=== PATIENT | female | born 1955 | race Caucasian/White ===

== ENCOUNTER 2018-02-11 12:44 | Inpatient (IN) | payer OTHER ==
[~2018-02-11] VITALS: Ht 167.6 cm; Wt 74.8 kg
--- NOTE | ~2018-02-11 | CON ---
[place], [place] REPORT OF CONSULTATION NAME: COMPA ARMANDO UNIT #: [id number] ROOM: 314 DOCTOR: ALVIN CLEMONS ED.D (ITA) BIRTHDATE: [birth year] DOS: 02/13/2018 HISTORY OF PRESENT ILLNESS: The patient is a 62-year-old female referred by Dr. Hernandez for competency evaluation. At the present time, she is on the [facility] Unit at [facility]. She states that she is and has no children. Her parents are both living, and they are presently making her decisions. She formerly worked with [employer] in [place], [place]. PAST MEDICAL HISTORY: Her medical history is pertinent for schizoaffective disorder and knee surgery. ALLERGIES: SHE IS ALLERGIC TO HALDOL AND PENICILLIN. MEDICATIONS: Include Exelon, Invega, Vasotec, K-Dur, Depakote Sprinkle, Dulcolax, Ativan, and Klonopin. This patient was awake, alert and oriented to person and place, but not to time. She is clearly not competent to make informed healthcare decisions at this time. I spoke with the staff at [facility], and they indicated that they always contacted the patient's parents, who were in their 80s, for any type of medical decisions. She does not have a healthcare power of trust and estates attorney. In my opinion, this patient would benefit from a healthcare power of trust and estates attorney or guardianship DIAGNOSIS: Schizoaffective disorder. RECOMMENDATIONS: In my opinion, this patient is not competent to make informed healthcare decisions. Thank you very much for this consult. ALVIN CLEMONS ED.D CM:CONSTR:REPORT OF CONSULTATION 1715 02/14/18 0332 junior HERNANDEZ MD
--- NOTE | ~2018-02-11 | PR ---
[place], [place] PROGRESS NOTE NAME: COMPA ARMANDO UNIT #: [id number] ROOM: 314 DOCTOR: ELOINA MACIAS MD BIRTHDATE: [birth year] DOS: 02/20/2018 CHIEF COMPLAINT: "I am still not sleeping." SUMMARY OF THE VISIT: The patient was interviewed in the dining area. She reported to me that she still is having significant issues with sleep. She not only has trouble falling asleep, but she does not sleep through the night. She seemed rather perplexed and bewildered when I told her that she would be returning back to [facility] and that her guardian wanted it this way. She was unclear how she ever got a guardian and why she has one. I tried to reorient her that her decision making process at times is suspect and she does need somebody to help her make more informed decisions. She nodded in approval at that time. She convincingly denies any medication side effects at this time. MENTAL STATUS: She is alert and oriented with time gaps. Mood does seem to be trending more towards euthymia. Affect is more appropriate. There is no amy, hypomania. There is no gross psychosis. There is no tardive dyskinesia, extrapyramidal symptoms, or other side effects noted. PLAN: I will change her Rozerem from p.r.n. to straight to see if this helps. She is to be given her secondary loading dose of the Invega Sustenna today. We will monitor then over the next 24-48 hours for both benefits and side effects, discharging then when psychiatrically stable. ELOINA MACIAS MD CM:PNTRANS [id number] ELOINA MACIAS MD 03/02/18 0831 interface
--- NOTE | ~2018-02-11 | PN ---
[place], [place] PROGRESS NOTE NAME: COMPA ARMANDO UNIT #: [id number] ROOM: 314 DOCTOR: ELOINA MACIAS MD BIRTHDATE: [birth year] DATE: 02/15/18 ADDENDUM 04/04/[address] MACIAS: Above note reviewed. Agree with observations, recommendations, and overall treatment plan. ELOINA MACIAS MD CM:PNTRANS 3 5 ELOINA MACIAS MD 04/04/18805 HALLIE DUBON MIS.LLR
--- NOTE | ~2018-02-11 | PR ---
[place], [place] PROGRESS NOTE NAME: COMPA ARMANDO UNIT #: [id number] ROOM: 314 DOCTOR: VENECIA HUTCHINS MD BIRTHDATE: [birth year] DOS: 02/17/2018 SUBJECTIVE: The patient seen and I spoke with the staff. Per staff, the patient is argumentative at times, selectively compliant with her medications, hard to redirect at times. The patient was on her bed in her room. She said that she is not doing good. When I asked her why she said that she did not sleep well last night. I encouraged the patient to get up from bed and stay in the day area so that she can sleep well at night. The patient mentioned that she will do it. MENTAL STATUS EXAMINATION: Pleasant, cooperative. Described her mood as "not good". Affect was flat. Thought process goal directed. No flight of ideas or loosening of association. She denied auditory or visual hallucination. No delusion or paranoia noted. She denies suicidal ideation, intent or plan. She also denied homicidal ideation, intent or plan. Insight and judgment was impaired. PLAN: 1. Continue current medications and care. 2. Encourage activities in groups. 3. Continue redirection and supportive care. VENECIA HUTCHINS MD CM:PNTRANS [id number] VENECIA HUTCHINS MD 03/06/18 1017 interface
--- NOTE | ~2018-02-11 | WRIGHTHP ---
[place], [place] PATIENT HISTORY AND PHYSICAL EXAM NAME: COMPA ARMANDO UNIT #: [id number] ROOM: 314 DOCTOR: ELOINA MACIAS MD BIRTHDATE: [birth year] DOS: 02/13/2018 CHIEF COMPLAINT: "I hated [facility]." HISTORY OF PRESENT ILLNESS: This is a 62-year-old white female known to me from her stay at [facility], a halfway in [place], [place]. The patient has a lengthy history of schizoaffective disorder and has been spiraling out of control over the last week to 2 weeks prior to this admission. During this period of time, she has been episodically noncompliant with her medications as well as all aspects of care. She has been verbally and physically aggressive towards staff, making threats of harm to them. She has also stated at times she is suicidal or homicidal. She has been very labile and unpredictable. She has put herself and others at risk for harm. She is now admitted to rule out any organic factors, to stabilize on medication and then to return to the least restrictive environment. PAST MEDICAL HISTORY: Remarkable for schizoaffective disorder and a history of knee surgery. ALLERGIES: She has allergies listed to HALDOL and PENICILLIN. SOCIAL HISTORY: She never smoked cigarettes. She is a social drinker, and does not use illicit drugs. STRENGTHS: Ambulatory, good verbal skills. WEAKNESSES: Chronic severe mental health issues. MENTAL STATUS: She is alert and oriented to person, place, approximate to time. Mood does seem to be rather labile and inappropriate at times. Affect is bizarre. She is short and terse at times, jumping from topic to topic. She does have significant delusions and there is also significant paranoia. Short term memory is poor. DIAGNOSIS: Schizoaffective disorder. PLAN: Her Risperdal has already been discontinued as has her Zoloft. I will discontinue her Klonopin as well, trying to simplify her regimen. I will start her on Invega 6 mg in the morning with the plan ultimately to load with Invega Sustenna. Also, start her on Exelon patch because I do see some cognitive slippage, engage in individual and patton milieu activity, returning then to the least restrictive environment when psychiatrically stable. [place], [place] PATIENT HISTORY AND PHYSICAL EXAM NAME: COMPA ARMANDO UNIT #: [id number] ROOM: [facility] DOCTOR: ELOINA MACIAS MD BIRTHDATE: [birth year] ELOINA MACIAS MD CM:HISPHYS:PATIENT HISTORY AND PHYSICAL EXAMINATION [id number] ELOINA MACIAS MD 02/13/18 1216 interface
--- NOTE | ~2018-02-11 | PN ---
[place], [place] PROGRESS NOTE NAME: COMPA ARMANDO UNIT #: [id number] ROOM: 314 DOCTOR: ELOINA MACIAS MD BIRTHDATE: [birth year] DATE: 02/21/18 ADDENDUM 04/04/[address] MACIAS: Above note reviewed. Agree with observations, recommendations, and overall treatment plan. ELOINA MACIAS MD CM:PNTRANS 3 6 ELOINA MACIAS MD 04/04/18806 HALLIE DUBON MIS.LLR
--- NOTE | ~2018-02-11 | DS ---
[place], [place] DISCHARGE SUMMARY NAME: COMPA ARMANDO UNIT #: [id number] ROOM: 314 DOCTOR: ELOINA MACIAS MD BIRTHDATE: [birth year] DOS: 02/22/2018 CHIEF COMPLAINT: "I hated [facility]." HISTORY OF PRESENT ILLNESS: This is a 62-year-old white female known to me from her stay at [facility]. The patient has a lengthy history of schizoaffective disorder and has been spiraling out of control for the last 2 weeks prior to this admission. During this period of time, she has been episodically noncompliant with her medications as well as all aspects of her care. She has been both verbally and physically aggressive towards staff, making threats to harm them. At times, she stated that she is actively suicidal and homicidal. She is very labile and unpredictable and was admitted to rule out organic factors and to stabilize on medication. SUMMARY OF HOSPITAL COURSE: The patient was admitted to the unit where her previous psychotropic medication regimen was discontinued. Risperdal and Zoloft were stopped as well as Klonopin in an attempt to simplify her drug regimen. She was started on Invega 6 mg in the morning and because of significant cognitive impairment, was also started on Exelon patch. After tolerating several doses of the Invega well, she was loaded with Invega Sustenna 234 mg without any apparent side effects. After about 4 days of the initial loading dose, she received her secondary loading dose of Invega Sustenna 156 mg. After tolerating both of these well and monitoring her over the next 24-48 hours, she did improve dramatically. There was no tardive dyskinesia, extrapyramidal symptoms, akathisia, rigidity or any other side effects noted. Her psychotic symptoms and mood stabilized to the point where she could safely return to [facility] where I will continue to follow her. MENTAL STATUS AT DISCHARGE: She is alert and oriented with significant time gaps. Mood does seem to be strongly trending towards euthymia. Affect is more appropriate. There is no amy, hypomania or gross psychotic symptoms. No agitation or aggression. No TD, EPS or other side effects. DIAGNOSIS AT DISCHARGE: Schizoaffective disorder. PLAN: The patient is medically stable and no acute issues are currently present. Psychiatrically, she is improved to the point where I will be able to admit her back to [facility], a long-term care [facility] where I will be the psychiatrist of record. [place], [place] DISCHARGE SUMMARY NAME: COMPA ARMANDO UNIT #: [id number] ROOM: [facility] DOCTOR: ELOINA MACIAS MD BIRTHDATE: [birth year] ELOINA MACIAS MD CM:DISCHARG [id number] ELOINA MACIAS MD 03/30/18 1010 interface
--- NOTE | ~2018-02-11 | PN ---
[place], [place] PROGRESS NOTE NAME: COMPA ARMANDO UNIT #: [id number] ROOM: 314 DOCTOR: ELOINA MACIAS MD BIRTHDATE: [birth year] DATE: 02/14/18 ADDENDUM 04/04/18803 DR. MACIAS: Above note reviewed. Agree with observations, recommendations, and overall treatment plan. ELOINA MACIAS MD CM:PNTRANS 3 4 ELOINA MACIAS MD 04/04/18804 HALLIE DUBON MIS.LLR
--- NOTE | ~2018-02-11 | PN ---
[place], [place] PROGRESS NOTE NAME: COMPA ARMANDO UNIT #: [id number] ROOM: 314 DOCTOR: ELOINA MACIAS MD BIRTHDATE: [birth year] DATE: 02/16/18 ADDENDUM 04/04/18803 DR. MACIAS: Above note reviewed. Agree with observations, recommendations, and overall treatment plan. ELOINA MACIAS MD CM:PNTRANS 3 5 ELOINA MACIAS MD 04/04/18805 HALLIE DUBON MIS.LLR
--- NOTE | ~2018-02-11 | PR ---
[place], [place] PROGRESS NOTE NAME: COMPA ARMANDO UNIT #: [id number] ROOM: 314 DOCTOR: VENECIA HUTCHINS MD BIRTHDATE: [birth year] DOS: 02/19/2018 SUBJECTIVE: The patient seen and spoke with staff. Per staff, she took her medication. No behavioral problems or issues. The patient was pleasant and cooperative. She was in her room. She said that she is feeling better mood boswell, but reports poor sleep at night. She denied depressed mood or hopelessness. Denied any other neurovegetative signs and symptoms of depression. MENTAL STATUS EXAMINATION: Pleasant and cooperative, described. She described her mood as "better." Affect was mood congruent. Thought process goal directed. No flight of ideas, loosening of association. She denied auditory or visual hallucination. No delusion or paranoia noted. She denied suicidal ideation, intent, or plan. She also denied homicidal ideation, intent, or plan. PLAN: 1. Continue current medication and care. 2. Continue redirection and supportive care. 3. Encourage activities in groups. 4. Final medication management and discharge plan by the regular team. VENECIA HUTCHINS MD CM:PNTRANS [id number] VENECIA HUTCHINS MD 02/20/18 0534 interface
--- NOTE | ~2018-02-11 | PR ---
[place], [place] PROGRESS NOTE NAME: COMPA ARMANDO UNIT #: [id number] ROOM: 314 DOCTOR: ELOINA MACIAS MD BIRTHDATE: [birth year] DOS: 02/17/2018 CHIEF COMPLAINT: "I guess I feel better, I didn't sleep, though." SUMMARY OF THE VISIT: The patient was interviewed as she sat down to eat her breakfast. She looked perplexed and bewildered as she sat down and her responses to me tended to be vague and at times inappropriate to the question asked. When asked if she is feeling better, her response was "I do not know." She did per nursing report willingly take her loading dose of Invega Sustenna of 234 mg IM yesterday. I see no ill effects from the injection. There is no sedation, somnolence, tardive dyskinesia or extrapyramidal symptoms. She has been much more pleasant and compliant and other than the tendency she has to isolate in her room, she is becoming less and less problematic. MENTAL STATUS: She is alert and oriented with significant time gaps. Mood does seem to be starting to trend toward euthymia. Affect is more appropriate. There is no amy or hypomania present. Unclear if there is much psychotic symptoms because she is so vague and evasive in her thinking. Short term memory continues to be problematic. PLAN: I will go ahead and max out the Namenda to 10 mg twice daily augmenting the effectiveness of the Exelon patch at 13.3 mg a day. I will order Invega Sustenna at the secondary loading dose of 156 mg IM for 02/20/2018 and every month thereafter. I will order her Rozerem 8 mg at bedtime p.r.n. sleep and also obtain a Podiatry consult as nursing reports that the patient is picking a lot of dry skin from her feet and she did request that we help her in this area. We will engage her in individual and patton milieu, returning then to the least restrictive environment when psychiatrically stable. ELOINA MACIAS MD CM:PNTRANS [phone] ELOINA MACIAS MD 02/17/18 1435 interface
[2018-02-11] MEDS ORDERED: HYDROCHLOROTHIA25 M1 PO (19:44)
[2018-02-11] MEDS ORDERED: POTASSIUM CHLO20 ME4 PO (19:46)
[2018-02-11] MEDS ORDERED: RISPERIDONE0.25 M2 PO (19:47)
[2018-02-11] MEDS ORDERED: ENALAPRIL MALEAT5 MG PO (19:47)
[2018-02-11] MEDS ORDERED: SERTRALINE HYD100 MG PO (19:49)
[2018-02-12] MEDS ORDERED: PAIN RELIEVER325 MG PO (05:39)
[2018-02-12] MEDS ORDERED: DULCOLAX10 M1 R (05:40)
[2018-02-12] MEDS ORDERED: FLEET ENEMA 13133 ML R (05:41)
[2018-02-12] MEDS ORDERED: KLONOPIN0.5 MG PO (05:41)
[2018-02-12] MEDS ORDERED: MILK OF MA400 MG/5 M PO (05:42)
[2018-02-12] MEDS ORDERED: VITAMIN C500 M7 PO (05:43)
[2018-02-12 12:24] VITALS: BP 134/81
[2018-02-12 13:29] VITALS: BP 134/81
[2018-02-12 18:19] LABS: BILIRUBIN NEGATIVE (NEGATIVE); BLOOD TRACE-LYSED (NEGATIVE); CLARITY CLEAR (CLEAR); COLOR YELLOW (YELLOW); GLUCOSE NEGATIVE (NEGATIVE); KETONE NEGATIVE (NEGATIVE); LEUKO ESTERASE 2+ (NEGATIVE); NITRITE POSITIVE (NEGATIVE); SPECIFIC GRAVITY <= 1.005 (1.005-1.030)
[2018-02-12 18:27] LABS: BACTERIA 3+; RBC 0-2 rbc/hpf (0-2); WBC 21-30 wbc/hpf (0-5)
[2018-02-12 20:00] VITALS: BP 158/72
[2018-02-13 07:06] LABS: BASO % 0.6 % (0.0-1.0); EOS # 0.1 10*3/uL (0.0-0.4); EOS % 1.1 % (1.0-4.0); HEMATOCRIT 41.2 % (37.0-47.0); HEMOGLOBIN 13.4 g/dl (12.0-16.0); LYMPH # 0.9 10*3/uL (1.3-4.4); LYMPH % 19.7 % (27.0-41.0); MEAN CELL VOLUME 86.2 fl (81.0-99.0); MEAN CORPUSCULAR HGB CONC 32.5 g/dl (33.0-37.0); MEAN PLATELET VOLUME 10.6 fl (9.6-12.3); MONO # 0.5 10*3/uL (0.1-1.0); NEUT # 3.2 10*3/uL (2.3-7.9); NEUT % 68.4 % (47.0-73.0); PLATELET COUNT AUTOMATED 129 10*3/uL (130-400); RED BLOOD COUNT 4.78 10*6/uL (4.10-5.10); RED CELL DISTRI WIDTH 14.2 % (0-14.5); WHITE BLOOD COUNT 4.7 10*3/uL (4.8-10.8)
[2018-02-13 07:27] LABS: ALBUMIN 3.5 gm/dl (3.1-4.5); ALKALINE PHOSPHATASE 78 U/L (45-117); BUN 4 mg/dl (7-24); CHLORIDE 103 mmol/L (98-107); CHOLESTEROL 152 mg/dL (<200); CREATININE 0.64 mg/dL (0.55-1.02); HDL CHOLESTEROL 58 mg/dl (40-60); LDL CHOLESTEROL 79 mg/dL (9-159); POTASSIUM 4.3 mmol/L (3.5-5.1); SGOT/AST 13 IU/L (3-35); SGPT/ALT 20 U/L (12-78); SODIUM 138 mmol/L (136-145); TOTAL PROTEIN 6.4 gm/dL (6.4-8.2); TRIGLYCERIDES 73 mg/dl (<150); VLDL CHOLESTEROL 15 mg/dL (6-40)
[2018-02-13 07:32] LABS: THYROID STIM HORMONE (HS) 0.921 uIU/ml (0.358-4.75)
[2018-02-13 07:57] LABS: VITAMIN D, 25-HYDROXY 32.1 ng/mL (30-100)
[2018-02-13 08:34] VITALS: BP 130/68
[2018-02-13 19:49] VITALS: BP 144/87
[2018-02-14 07:50] VITALS: BP 137/70
[2018-02-14 20:03] VITALS: BP 132/81
[2018-02-15 07:55] VITALS: BP 139/65
[2018-02-15 20:08] VITALS: BP 137/80
[2018-02-15 20:36] VITALS: BP 137/80
[2018-02-16 07:22] VITALS: BP 112/77
[2018-02-16 20:00] VITALS: BP 121/78
[2018-02-17 08:09] VITALS: BP 155/87
[2018-02-17 19:42] VITALS: BP 127/76
[2018-02-18 20:10] VITALS: BP 153/83
[2018-02-19 07:27] VITALS: BP 148/72
[2018-02-19 20:46] VITALS: BP 127/76
[2018-02-20 07:51] VITALS: BP 145/74
[2018-02-20 20:10] VITALS: BP 130/85
[2018-02-21 07:53] VITALS: BP 128/69
[2018-02-21 20:08] VITALS: BP 118/64
[2018-02-22 08:16] VITALS: BP 147/80
[2018-02-22] MEDS ORDERED: EXELON13.3 MG/21 T (10:55)
[2018-02-22] MEDS ORDERED: INVEGA SUSTENN156 MG IM (10:55)
[2018-02-22] MEDS ORDERED: MEMANTINE HCL10 MG PO (10:55)
[2018-02-22] MEDS ORDERED: PALIPERIDONE ER6 MG PO (10:55)
[2018-02-22] MEDS ORDERED: MIRTAZAPINE15 M2 PO (10:55)
== END 2018-02-22 18:10 | DRG 885 ==
LOC: 3N 12:44
PROVIDERS: Registered Nurse
PROC: 0HBRXZZ Excision of Toe Nail, External Approach (ICD-10-PCS; principal; 2018-02-17)
DX: F25.9 Schizoaffective disorder, unspecified (principal); D69.6 Thrombocytopenia, unspecified; N39.0 Urinary tract infection, site not specified; I10 Essential (primary) hypertension; B35.3 Tinea pedis; F32.9 Major depressive disorder, single episode, unspecified; Z91.19 Patient's noncompliance with other medical treatment and regimen; Z88.0 Allergy status to penicillin; Z88.8 Allergy status to other drugs, medicaments and biological substances; Z79.899 Other long term (current) drug therapy

== ENCOUNTER 2019-06-27 15:57 | Inpatient (IN) | payer OTHER ==
[~2019-06-27] VITALS: Wt 59.9 kg
[~2019-06-27 15:57] MED LIST: DULCOLAX10 M1 R; ENALAPRIL MALEAT5 MG PO; EXELON13.3 MG/21 T; FLEET ENEMA 13133 ML R; HYDROCHLOROTHIA25 M1 PO; INVEGA SUSTENN156 MG IM; KLONOPIN0.5 MG PO; MEMANTINE HCL10 MG PO; MILK OF MA400 MG/5 M PO; MIRTAZAPINE15 M2 PO; PAIN RELIEVER325 MG PO; PALIPERIDONE ER6 MG PO; POTASSIUM CHLO20 ME4 PO; RISPERIDONE0.25 M2 PO; SERTRALINE HYD100 MG PO; VITAMIN C500 M7 PO
[2019-06-27] MEDS ORDERED: ACIDOPHILUS1 EAC4 PO (17:17)
[2019-06-27] MEDS ORDERED: ANTI-DIARRHEAL2 MG PO (17:18)
[2019-06-27] MEDS ORDERED: CYMBALTA60 MG PO (17:20)
[2019-06-27] MEDS ORDERED: B121000 MCG/1 IM (17:20)
[2019-06-27] MEDS ORDERED: VISTARIL50 MG PO (17:22)
[2019-06-27] MEDS ORDERED: INVEGA SUSTENN234 MG IM (17:23)
[2019-06-27] MEDS ORDERED: ATIVAN1 MG PO (17:28)
[2019-06-27] MEDS ORDERED: METAMUCIL PACK3.4 GM PO (17:33)
[2019-06-27] MEDS ORDERED: TUSSIN DM 10 M237 M1 PO (17:34)
[2019-06-27] MEDS ORDERED: VITAMIN D34000 UNIT PO (17:35)
--- NOTE | 2019-06-28 18:18 | NUR ---
TRCOMPA a 63 year old F admitted via stretcher from the EMERGENCY ROOM as a voluntary BY GUARDIAN admission. Arrived on unit at 1800 . ALLERGIES: HALDOL, PCN . Vital signs are: 97.4-81-20-112/74-98%RA. VERBAL CONSENT RECEIVED FROM GUARDIAN FOR the following forms with stated understanding: Authorization For The Release of Medical Information, Clothing List, Consent to Voluntary Admission and Hospitalization, Consent and Release Forms/Receipt of Rights, Acknowledgement of Advance Directive Information, Behavioral Health Consent Form, and Informed Consent of Medications. Admitted under the services of Dr. GILBERTO DEL RIO,[facility]. A search was conducted and hazardous articles were removed. Client was oriented to the unit. TONYA CARBAJAL
[2019-06-28 18:36] VITALS: BP 112/74
--- NOTE | 2019-06-28 18:43 | NUR ---
PT C/O CHEST PAIN, DR. AVILA UPDATED PER DR. AVILA ORDER ADMISSION LABS FOR NOW AND ADD A TROPONIN ORDER SET. PER HE WILL ADD IN THE EKG TO MATCH. NO FURTHER ORDERS AT THIS TIME. PT
[2019-06-28 18:51] VITALS: BP 112/74
[2019-06-28 19:32] LABS: BASO % 0.5 % (0.0-1.0); EOS # 0.2 10*3/uL (0.0-0.4); EOS % 3.5 % (1.0-4.0); HEMATOCRIT 40.8 % (37.0-47.0); HEMOGLOBIN 13.3 g/dl (12.0-16.0); LYMPH # 1.3 10*3/uL (1.3-4.4); LYMPH % 23.4 % (27.0-41.0); MEAN CELL VOLUME 83.6 fl (81.0-99.0); MEAN CORPUSCULAR HGB 27.3 pg (27.0-31.0); MEAN CORPUSCULAR HGB CONC 32.6 g/dl (33.0-37.0); MEAN PLATELET VOLUME 10.1 fl (9.6-12.3); MONO # 0.4 10*3/uL (0.1-1.0); MONO % 7.7 % (3.0-9.0); NEUT # 3.7 10*3/uL (2.3-7.9); NEUT % 64.7 % (47.0-73.0); PLATELET COUNT AUTOMATED 155 10*3/uL (130-400); RED BLOOD COUNT 4.88 10*6/uL (4.10-5.10); RED CELL DISTRI WIDTH 12.3 % (0-14.5); WHITE BLOOD COUNT 5.7 10*3/uL (4.8-10.8)
[2019-06-28 19:51] LABS: ALKALINE PHOSPHATASE 77 U/L (45-117); BUN 21 mg/dl (7-24); CHLORIDE 105 mmol/L (98-107); CREATININE 0.74 mg/dL (0.55-1.02); POTASSIUM 3.6 mmol/L (3.5-5.1); SGOT/AST 19 IU/L (3-35); SGPT/ALT 19 U/L (12-78); SODIUM 139 mmol/L (136-145); TOTAL PROTEIN 6.9 gm/dL (6.4-8.2)
[2019-06-28 20:00] VITALS: BP 112/74
--- NOTE | 2019-06-28 20:05 | NUR ---
EKG HERE TO TEST CLIENT
--- NOTE | 2019-06-28 20:21 | NUR ---
DR WARD ON UNIT TO SEE PT FOR MEDICAL CONSULT
[2019-06-28 20:23] LABS: VITAMIN D, 25-HYDROXY 54.1 ng/mL (30-100)
--- NOTE | 2019-06-28 22:04 | NUR ---
INFORMED RESIDENT THAT CONTINUED EKG'S AND LABS ARE FUELING HER SOMATIC DELUSIONS. SHE HAS HAD 2 NORMAL SETS COMPLETED. SHE KNOW IS SURE SOMETHING SEVERE IS WRONG OR THEY WOULD STOP DOING ALL THESE TEST. HE SAID HE WILL DC FINAL SET. EMOTIONAL SUPPORT PROVIDED
--- NOTE | 2019-06-29 04:15 | NUR ---
24 HR chart check completed.
--- NOTE | 2019-06-29 06:17 | NUR ---
SLEPT APPROX 7 HRS
[2019-06-29 07:30] LABS: CHOLESTEROL 181 mg/dL (<200); HDL CHOLESTEROL 46 mg/dl (40-60); LDL CHOLESTEROL 114 mg/dL (9-159); TRIGLYCERIDES 103 mg/dl (<150); VLDL CHOLESTEROL 21 mg/dL (6-40)
[2019-06-29 07:47] VITALS: BP 129/69
--- NOTE | 2019-06-29 08:15 | NUR ---
Treatment Plan meeting was held this a.m. with Dr. Hernandez, RN, AT, [employer] and Valve Inspector. Plan for discharge next week. Pt. came to [facility] from [facility] [place].
--- NOTE | 2019-06-29 09:23 | NUR ---
Spoke with Shantel at [facility]. Pt. will return to facility at discharge. Provided with discharge Plans for next week and Faxed Clinical Updates to [phone].
--- NOTE | 2019-06-29 11:02 | NUR ---
DR CHAPA AND TEAM ON UNIT TO SEE PATIENT
--- NOTE | 2019-06-29 11:49 | NUR ---
Phone conversation with pt's guardian Sita Luisa. Sita stated that pt has decompensated over the past two months since moving to the assisted living in 03/26. Sita stated that pt had been doing so well at [facility] that she no longer met the level of care. Pt also voiced that she wanted to move to an AL. However, since the move, pt's emotional state has gradually worsened. Sita stated that pt normally is not somatic and does not isolate. Sita also confirmed that pt has a very supportive family found in her mother and two brothers.
--- NOTE | 2019-06-29 11:52 | NUR ---
AM GROUP/EXERCISE AND BRAIN GAMES PT DID NOT ATTEND MORNING GROUP THERAPY. PT WAS NOT FEELING WELL AND STAYED IN BED.
--- NOTE | 2019-06-29 12:39 | NUR ---
Faxed admission clinical to [facility]. Awaiting response.
--- NOTE | 2019-06-29 13:50 | NUR ---
Patient is in bed w/ c/o diarrhea per nursing. Patient has many somatic delusions and is not appropriate for OT evaluation at this time. OTR will attempt at a later date. Thank you. Dulce Maria Packer OTR/L
[2019-06-29 19:07] VITALS: BP 135/80
--- NOTE | 2019-06-29 22:10 | NUR ---
CAME OUT FOR SNACK BUT WENT BACK TO BEDROOM. TOLD MILIEU SHE COULDN'T MOVE EVEN THOUGH SHE WAS UP WITH WALKER. REMAINS ISOLATIVE TO ROOM BUT MEDICATION COMPLIANT. MEDICATION EDUCATION COMPLETED. WHEN ASKED HOW HER BOWELS WERE SHE REPLIED "IS THERE A PROBLEM WITH THEM?" WILL MONITOR FOR CHANGES IN BEHAVIOR/MOOD.
--- NOTE | 2019-06-30 04:15 | NUR ---
24 HR chart check completed.
--- NOTE | 2019-06-30 06:15 | NUR ---
SLEPT WELL PAST 2145PM TO 0600AM
--- NOTE | 2019-06-30 06:52 | NUR ---
refuses to get up. somatic c/o spinal pain from fall last week. tried to redirect that laying in bed all day and night is the cause of muscle and bone pain without success. will continue provide support
[2019-06-30 07:48] VITALS: BP 122/81
--- NOTE | 2019-06-30 11:57 | NUR ---
AM GROUP/DISCUSSION/COPING PT ENCOURAGED TO ATTEND GROUP BUT EXPRESSES "I HAVE BEEN HAVING LOOSE BOWELS, I THINK IM GOING TO STAY IN MY ROOM RIGHT NOW" THIS STAFF CONITNUES TO ENCOURAGE PT TO ATTEND GROUP IF FEELING BETTER. PT NEVER SHOWED UP TO GROUP. PT WILL CONTINUE TO BE ENCOURAGED TO ATTEND AND PARTICIPATE IN FUTURE GROUP SESSIONS.
[2019-06-30 13:02] LABS: BILIRUBIN NEGATIVE (NEGATIVE); BLOOD NEGATIVE (NEGATIVE); CLARITY SL CLOUDY (CLEAR); COLOR YELLOW (YELLOW); GLUCOSE NEGATIVE (NEGATIVE); KETONE 1+ (NEGATIVE); LEUKO ESTERASE NEGATIVE (NEGATIVE); NITRITE NEGATIVE (NEGATIVE); PH 5.5 (5.0-9.0); SPECIFIC GRAVITY >= 1.030 (1.005-1.030); UROBILINOGEN 0.2 E.U./dl (0.2-1.0)
[2019-06-30 13:19] LABS: CALCIUM OXALATE CRYSTALS 2+; WBC 0-2 wbc/hpf (0-5)
--- NOTE | 2019-06-30 14:57 | NUR ---
DR. CHAPA ON UNIT TO ASSESS PATIENT.
--- NOTE | 2019-06-30 15:21 | NUR ---
Shift chart check completed.
--- NOTE | 2019-06-30 15:53 | NUR ---
PM GROUP/LEISURE/FOOTBALL PT ENCOURAGED TO ATTEND AN DPARTICIPATE BUT CHOSE TO REMAIN IN ROOM. PT EXPRESSED "I'M STILL HAVING STOMACH PROBLEMS" PT WILL CONTINUE TO BE ENCOURAGED TO ATTEND AND PARTICIPATE IN FUTURE GROUP SESSIONS TO BEST OF ABILITY.
--- NOTE | 2019-06-30 17:06 | NUR ---
P: ISOLATIVE, WITHDRAW AND SOMATIC COMPLAINTS WITH ENCOURAGED TO PARTICIPATE IN GROUP SESSION AND ATTEND DINING ROOM FOR MEALS. I: ONE ON ONE, REDIRECTION, ENCOURAGE GROUP SESSIONS, SOCIAL INTERACTIONS AND COMING DOWN TO DINING ROOM FOR MEALS. R: EFFECTIVE WITH ONE ON ONE AND REDIRECTION. PATIENT IS ALERT TO PERSON, PLACE, TIME AND SITUATION; ABLE TO VOICE NEEDS. MOOD IS IRRITABLE; PROCCUPIED WITH HAVING TO USE THE BATHROOM WHEN IN DINING ROOM WITH OTHER PATIENTS. DENIES ANY HALLUCIANTIONS, DELUSIONS, HI/SI OR PAIN. 1 PERSON, VERBAL CUEING WITH ACTIVITIES OF DAILY LIVING, CONTINENT OF BOWEL AND BLADDER. SET UP FOR MEALS. INTAKE VARY WITH ENCOURAGEMENT. MEDICATION COMPLAINT WITH EDUCATION PROVIDED. Q 15 MINUTE SAFETY CHECKS MAINTAINED. P: CONTINUE TO MONITOR MOOD, SOCIAL ISOLATION AND APPETITE; PROVIDE ONE ON ONE, REDIRECTION AND ENCOURAGE PATIENT TO COME OUT OF ROOM FOR MEALS AND SOCIAL INTERACTION.
--- NOTE | 2019-06-30 18:42 | NUR ---
P: PROCCUPIED WITH BOWELS, HANDS DOWN PANTS MULIPLE TIMES, COMPLAINTS OF STOMACH ACHES, STATES "THAT'S THE ONLY WAY I KNOW I HAVE TO GO, I'M WALKING ON NERVES" I: ABDOMEN ASSESSMENT; BOWEL SOUND PRESENT, ACTIVE X 4. NO DIARRHEA NOTED/ OBSERVED. PRN MAALOX 30CC PO GIVEN. ONE ON ONE PROVIDED REGARDING KEEPING HANDS DOWN PANTS, INAPPROPIATE. R: PATIENT TOOK MEDICATION AND RESTING IN BED. P: CONTINUE TO MONITOR PATIENT'S COMPLAINT WITH GI UPSET AND UPDATE DOCTOR WITH CONCERNS.
[2019-06-30 20:06] VITALS: BP 120/81
--- NOTE | 2019-06-30 21:44 | NUR ---
P ISOLATION, CONFUSION I ONE ON ONE REDIRECTION AND REORIENTATION, ENCOURAGE GROUP PARTICIPATION AND SOCIUALIZATION WITH STAFF AND PEERS. R PATIENT RESTING IN BED WITH EYES CLOSED. AROUSE EASIILY WITH VERBAL STIMULI. PATIENT COMPLIANT WITH MEDICAITONS. MOOD STABLE. NO AGGRESSION OR AGITATION NOTED. DENIES PAIN. ALERT TO SELF AND SITUATION. P CONTNUE TO MONITOR FOE AGGRESSION AND AGITATION. ENCOURAGE SOCIALIZATION WITH STAFF AND PEERS. PROVIDE ON ON ONE AND REDIRECT REORIENT PRN.
--- NOTE | 2019-07-01 05:22 | NUR ---
Patient slept 8hrs without interruption during shift
[2019-07-01 07:52] VITALS: BP 121/67
--- NOTE | 2019-07-01 10:01 | NUR ---
DR. CHAPA ON UNIT TO ASSESS PATIENT.
--- NOTE | 2019-07-01 12:12 | NUR ---
AM GROUP/EXERCISES/BRAIN GAMES PT ENCOURAGED TO ATTEND AN DPARTICIPATE IN GROUP BUT STATES "I CANT MOVE MY LEGS TODAY" AND DID NOT COME TO GROUP AND CHOSE TO REMAIN IN BED ALTHOUGH STAFF EXPLAINS TO PT THAT NURSES OR MHW CAN ASSIST PT. PT ISOLATING SELF. PT WILL CONTINUE TO BE ENCOURAGED TO ATTEND AND PARTICIPATE IN FUTURE RGOUP SESSIONS TO BEST OF PT ABILITY.
[2019-07-01 20:06] VITALS: BP 121/82
--- NOTE | 2019-07-01 21:53 | NUR ---
Patient alert and oriented x4. Mood irritable. Patient denies hallucinations. Patient says " I am in pain." This nurse told patient that patient could have tylenol. Patient states "Tylenol doesn't work. I don't want it." Patient compliant with HS medications with little encouragement. Educated patient on medications. Patient isolative to room this evening. Attempted to provide 1:1 for emotional support but patient refused. Plan to continue to encourage medication compliance and continue to offer emotional support. Also continue to encourage more interaction with staff and other patients and continue to monitor behavior/mood. Q 15 minute safety checks continued and maintained. See [facility] flowsheet for further documentation.
--- NOTE | 2019-07-02 00:15 | NUR ---
24 HR chart check completed.
--- NOTE | 2019-07-02 05:21 | NUR ---
Patient slept approx. 3 hours of sleep throughout shift with a few interruptions. Q 15 minutes of safety checks continued and maintained.
[2019-07-02 06:25] VITALS: BP 104/62
--- NOTE | 2019-07-02 06:25 | NUR ---
Patient walking with her walker out through room,went to turn to ambulate down hallway and fell. Patient hit her head. Hematoma noted on lt back of head and bleeding also noted. Vital signs obtained 97.6-98-16 104/62 and 97% on room air. Dr. Servin was notified and orders were received. Yeni Casanova nursing tank storage supervisor was also notified.
--- NOTE | 2019-07-02 06:38 | NUR ---
TRCOMPA [id number] Please refer to the physician's history and physical for past medical history, comorbid conditions, and allergies. Diagnosis: SCHIZOAFFECTIVE DISORDER Gabo Score: 21,LOW OR NO RISK WOUND DESCRIPTIONS: Wound Number: 1 Location of the wound: Left back of head Type of wound: traumatic Thickness: Partial Size: 2.0cm x 2.0cm x 0.1cm Tunneling: none Undermining: none Sinus Tract: none Presence of Exudate: Sanguineous Amount: Light Color: Red Odor: None Periwound Skin Appearance: edema Wound edges: approximated Pain (associated with wound): none at time of assessment How does patient state this happened? pt stated she fell on the floor Surface the patient is resting on: Proform SKIN PREVENTION RECOMMENDATION: 1. Pressure redistribution support surface as appropriate 2. Elevate heels 3. Remove boots/TEDS every shift and reapply 4. Head of bed 30 degrees as tolerated 5. Assess nutrition and hydration 6. Manage moisture 7. Avoid the use of containment devices while in bed 8. Use absorptive products on surfaces limit layers of linens on bed 9. Turn and reposition every 1-2 hours in bed and every 1 hour in chair as tolerated 10. Weight shifts every 15 minutes while up in chair 11. Offloading with pillows or device to keep heels elevated off bed 12. Monitor skin at least every shift 13. Inspect under medical devices twice a day WOUND TREATMENT RECOMMENDATIONS: Cleanse back of head left side with nss and apply bactroban and leave open to air bid
--- NOTE | 2019-07-02 07:40 | NUR ---
DAREK COOL CALLED. MESSAGE LEFT WITH ANSWERING SERVICE TO CALL BACK FOR AN UPDATE REGARDING PATIENT
--- NOTE | 2019-07-02 08:30 | NUR ---
Treatment Plan meeting was held this a.m. with Dr. Hernandez, RN, AT, EXECUTIVE CYBER LEADER-S and B2B Managed Service Sales Exec. Plan for discharge next week. Pt. will return to . Dr. Hernandez requests PASRR completed as back up to no improvement in behaviors for possible return to [facility].
--- NOTE | 2019-07-02 09:30 | NUR ---
Occupational therapy orders received and OT evaluation completed in full on floor three. Patient precautions include fall risk, ww use, and generalized confusion. Per OT eval, OT recommends a SNF. Patient would benefit from continued OT treatment to maximize independence and safety with ADLs and functional mobility/transfers. Patient complexity is moderate, [id number]. Thank you for the referral. Kat Elena, OTR/L
--- NOTE | 2019-07-02 10:10 | NUR ---
PATIENT COMPLAINING OF HEADACHE, RATE 8. PRN TYLENOL 650MG PO GIVEN AT THIS TIME.
--- NOTE | 2019-07-02 10:41 | NUR ---
PATIENT COMPLAINT OF UPSET STOMACH. PRN MAALOX 30ML PO GIVEN.
--- NOTE | 2019-07-02 10:46 | NUR ---
PASRR submitted to prepare for possible discharge needs.
--- NOTE | 2019-07-02 11:10 | NUR ---
NO FURTHER COMPLAINTS OF HEADACHE. PRN TYLENOL EFFECTIVE.
--- NOTE | 2019-07-02 11:43 | NUR ---
AM GROUP PT ATTENDED MORNING GROUP THERAPY AND PARTICIPATED BY LOOKING AT A BOOK AND TALKING WITH THIS LUMBER DRIVER. PT WAS PREOCCUPIED WITH HER "BOWELS" AND WAS ADVISED TO SPEAK WITH HER NURSE. PT WAS EASILY REDIRECTED BUT WOULD WIYOT BACK AROUND TO THE SAME SUBJECT. PT STATED, "YOU DON'T UNDERSTAND, MY BOWELS MOVE WITH THE CLOCK, THEY ARE ALWAYS MOVING. WHAT IF I GO IN MY PANTS? THEY WILL BE MAD AT ME IF THEY HAVE TO CLEAN ME UP"
--- NOTE | 2019-07-02 12:08 | NUR ---
Spoke with aMriam Vu Nurse at [facility]. Notified of plans to discharge next week. Provided with updates and discussed discharge Plans. Clinical updates faxed to facility Attn: Nurse [phone].
--- NOTE | 2019-07-02 12:41 | NUR ---
PRN MAALOX EFFECTIVE, NO FURTHER GI UPSET NOTED.
--- NOTE | 2019-07-02 14:10 | NUR ---
LITTLE received phone call from patients Hydraulic Engineer with [facility]. She wanted to confirm admit date and stated she would follow up with the patient once she is discharged home. -LITTLE Barnes
--- NOTE | 2019-07-02 14:25 | NUR ---
IP 4 days janet per Kaylynn at [facility], NRD 07/02. Ref # [id number]. Faxed [facility]. Awaiting response.
--- NOTE | 2019-07-02 15:39 | NUR ---
PM GROUP/AMARIS PT ATTENDED AFTERNOON GROUP THERAPY AND PARTICIPATED FOR ABOUT AN HALF HOUR BEFORE BECOMING PREOCCUPIED WITH USING THE BATHROOM. MHW TOOK HER AND RETURNED COMPLAINING THAT HER LEGS WERE NUMB AND SHE WAS "WALKING ON HER NERVES" WHILE SEATED IN A WHEELCHAIR.
--- NOTE | 2019-07-02 15:45 | NUR ---
PHYSICAL THERAPY Radhaal completed pt moderate level of complexity-[id number] recomend SNF at discharge PT to work on transfers,amb strengthening, thank you. Lucina Martinez PT
--- NOTE | 2019-07-02 17:58 | NUR ---
P: REOCCUPIED WITH BOWELS, SOMATIC COMPLAINTS; STATING "I'M WALKING ON NERVES, I CAN'T FEEL MY FEET, I DON'T KNOW WHEN I HAVE TO USE THE BATHROOM" I: ONE ON ONE FOR EMOTIONAL SUPPORT. PATIENT PLACED ON 2 HOUR TOILETING PROGRAM, REDIRECTION AND REASSURANCE NEEDED. R: EFFECTIVE. PATIENT IS PERSON, PLACE, TIME AND SITUATION; ABLE TO VOICE NEEDS. MOOD IS IRRITABLE AND ANXIOUS. PREOCCUPIED WITH BOWELS. DENIES ANY HALLUCINATIONS, DELUSIONS, HI/SI. 1 PERSON ASSIST WITH ACTIVITIES OF DAILY LIVING, CONTINENT OF BOWEL AND BLADDER. SET UP FOR MEALS, INTAKES ARE IMPROVING WITH ENCOURAGEMENT. MEDICATION COMPLAINT. Q 15 MINUTE SAFETY CHECKS MAINTAINED. PATIENT MORE INTERACTIVE WITH STAFF, PARTICIPATED IN GROUP SESSION. HAS BEEN OUT OF ROOM ALL DAY, BIG IMPROVEMENT NOTED. P: CONTINUE TO MONITOR MOOD, SOCIAL INTERACTIONS, MEAL INTAKES. PROVIDE ONE ON ONE AND REDIRECTION NEEDED.
[2019-07-02 20:00] VITALS: BP 124/80
--- NOTE | 2019-07-02 20:50 | NUR ---
EVENING/COLOR THERAPY/LEISURE PT ATTENDED BUT CHOSE NOT TO PARTICIPATE. PT ON BATHROOM SCHEDULE AND FOCUSED ON GOING OT THE BATHROOM. MHW PRESENT AND REDIRECTING AND REMINDING PT OF SCHEDULE. PT WILL CONTINUE TO ATTEND AND PARTICIPATE IN FUTURE GROUP SESSIONS TO BEST OF ABILITY.
--- NOTE | 2019-07-02 21:23 | NUR ---
ARGUMENTATIVE WITH MILIEUS ABOUT HER DEPENDS. REVIEWED MEDICATIONS BEFORE TAKING THEM. GAIT STEADY WITH WALKER.
--- NOTE | 2019-07-03 04:15 | NUR ---
24 HR chart check completed.
--- NOTE | 2019-07-03 04:20 | NUR ---
Upon discharge recommend patient to follow up for wound care in outpatient setting continue current wound care orders at discharging facility.
--- NOTE | 2019-07-03 07:30 | NUR ---
PHYSICAL THERAPY Patient seen this am 1:1 for therapy visit and was sitting up in activity room at table in her w/c upon therapist arrival. Patient identified by name / and joined by OT assistant men's soccer coach for observation only during COATING LINE WORKER visit. Patient was pleasant, repeating "I feel my nerves hitting the floor". Patient easily redirected, transfering sit to stand, CGA and ambulating with use of wh walker, CGA, 50'x 2, demonstrating bouts of increased velocity, R side gait deviation, requiring v/c for improved walker safety / navigation. Patient returned to w/c in activity room awaiting breakfast, under [facility] staff Supervision. Will continue per POC as tolerated, total treatment time 16 minutes. Sharad Alamo, COATING LINE WORKER
--- NOTE | 2019-07-03 07:45 | NUR ---
OT NOTE Pt was seen this A.M. 1:1 for 15 minute OT session under VISUALIZATION DEVELOPER and nursing staff supervision. Upon arrival pt was sitting upright in the w/c in the dining room. Pt identified by name and and had no complaints at this time. Pt was taken to the hallway where she completed functional mobility to her bathroom with Gela and use of w/w. Pt presented to therapy with slight L lateral lean which required Gela to correct. Pt stood sink side while washing her hands with Gela for assist with sequencing and correcting retrograde posture. Throughout entire session pt required verbal prompts for attention to task and redirection due to pt's focus being on her bowels. Pt was left sitting upright in the w/c in the dining room with body alarm activated for safety and under U staff supervision. Continue with rec D/C plan to SNF. FOX Escobar/Moises
[2019-07-03 07:46] VITALS: BP 122/84
--- NOTE | 2019-07-03 08:00 | NUR ---
DR. TAVERAS ON UNIT TO ASSESS PATIENT.
--- NOTE | 2019-07-03 08:15 | NUR ---
Treatment Plan meeting was held this a.m. with Dr. Hernandez, RN, AT, RN PATIENT CARE-S and Heel Buffer in attendance. Plan for discharge next week. Pt. at this point will return to [facility].
--- NOTE | 2019-07-03 08:45 | NUR ---
Patient resting quietly with no c/o discomfort. Respirations easy and regular. Vital signs stable. No overt distress. JOAQUIN IGLESIAS
--- NOTE | 2019-07-03 09:07 | NUR ---
Dr. Ricks notified of wound care recommendations.
--- NOTE | 2019-07-03 11:48 | NUR ---
AM GROUP PT WAS PRESENT FOR MORNING GROUP THERAPY BUT REFUSES ANY ACTIVITY OFFERED. PT IS FOCUSED ON HER BATHROOM SCHEDULE, HER STOMACH BEING UPSET AND CHEST PAINS. PT NURSE WAS NOTIFIED AND THESE ISSUES WERE ADDRESSED. PT EXPRESSED NO DELUSIONS WHILE IN GROUP.
--- NOTE | 2019-07-03 15:26 | NUR ---
Spoke with patient's guardian Sita Moran and provided pt update to her. Discussed discharge and informed Sita that a PASRR was completed in the event that it is needed. Tentative discharge plan if for pt to return to the [facility]. Sita stated that she would be available throughout the holiday weekend should there be a need to contact her.
--- NOTE | 2019-07-03 15:40 | NUR ---
PM GROUP PT ATTENDED AFTERNOON GROUP THERAPY AND PARTICIPATED HALF OF THE TIME BY COLORING SOME SUNFLOWERS. PT BEGAN COMPLAINING STATING, "MY BUTT IS STINGING", "I CAN'T BEND MY LEG", "MY LEGS ARE NUMB", "MY LEGS HURT", "I'M WALKING ON MY NERVES". PT IS SITTING IN A WHEELCHAIR AND MAKING THESE STATEMENTS SHE PROPELS HERSELF AND RAISES HER KNEE UP WHILE TELLING ME THAT SHE CAN'T FEEL HER LEGS. PT REPEATEDLY WHEELED OUT TO REPORT THESE THINGS TO HER NURSE DID I.
--- NOTE | 2019-07-03 16:09 | NUR ---
Shift chart check completed.
--- NOTE | 2019-07-03 18:49 | NUR ---
P: PREOCCUPIED WITH CHEST PAIN, NERVE PAIN, GI UPSET ISSUE. PATIENT AWARE OF THESE SYMPTOMS ARE FROM HER ANXIETY. I: ONE ON ONE FOR EMOTIONAL SUPPORT; REDIRECTIONS, ENCOURAGE GROUP PARTICIPATION, ENCOURAGED PATIENT TO DO SOME DEEP BREATHING EXERCISES WITH DEMONSTRATION, PROVIDE GINGERALE AND SNACKS. R: INEFFECTIVE. PATIENT IS ALERT TO PERSON, PLACE, TIME AND SITUATION; ABLE TO VOICE NEEDS. MOOD IS IRRITABLE AT TIMES. DENIES ANY HALLUCINATIONS, DELUSIONS, HI/SI. MEDICATION COMPLAINT. Q 15 MINUTE SAFETY CHECKS MAINTAINED. NO BOWEL MOVEMENT IN 4 DAYS, OFFERED PRUNE JUICE AND MILK OF MAG; PATIENT DECLINE, WILL TAKE PRUNE JUICE IN MORNING PER REQUEST. PATIENT UP IN DINING ROOM MOST OF THE DAY. INTERACTIVE WITH STAFF ONLY. IN GROUP SESSION TODAY. UP IN WHEEL CHAIR, ABLE TO SELF PROPEL. PATIENT CONTINUES ON 2 HOUR TOILETING SCHEDULE P: CONTINUE TO MONITOR ANXIETY, ISOLATION AND APPETITE. PROVIDE ONE ON ONE, REDIRECTION, UP OUT OF ROOM AND ENCOURAGED TO EAT MEALS.
[2019-07-03 20:01] VITALS: BP 120/81
--- NOTE | 2019-07-04 01:46 | NUR ---
PT ATTEMPTING TO TRANSFER HERSELF WITHOUT STAFF, REORIENTED TO THE IMPORTANCE OF SAFETY DUE TO FALL RISK. PT MEDICATION COMPLIANT, COMPLAINT OF LEG AND BACK PAIN, STATING THAT IT WORSENS AT NIGHT. GIVEN TYLENOL AT H[employer]S [employer] P[employer]. PT RESTING QUIETLY, NO SI/HI OR DELUSIONS NOTED THIS EVENING. CONTINUE TO MONITOR PER 15 MIN CHECKS
--- NOTE | 2019-07-04 07:00 | NUR ---
OT NOTE Pt was seen this A.M. 1:1 for 15 minute OT session with GIS DEVELOPER and nursing staff present for observation only. Upon arrival pt was sitting upright in the svitlana chair in the dining room. Pt identified by name and and had no complaints at this time. Pt was taken to the hallway where she completed sit to stand transfer from chair level with Gela and use of w/w for UE support. Functional mobility was then completed into the bathroom with CGA and use of w/w. There she stood sink side while washing her hands with Gela for assist with sequencing. Functional mobility then completed back to the dining room where she was left sitting upright in the svitlana chair with body alarm activated for safety, lap tray in place, and under U staff supervision. Throughout entire session pt required verbal prompts and redirection due to focusing on her bowels and not task at hand. Continue with rec D/C plan to SNF. FELIPE Escobar
--- NOTE | 2019-07-04 07:01 | NUR ---
PATIENT SLEPT 7.5 HRS WITH ONE AWAKENING.
--- NOTE | 2019-07-04 07:05 | NUR ---
PHYSICAL THERAPY Patient seen this am for therapy visit and was sitting up in activity room Sharron chair upon therapist arrival. Patient identified by name / and was very talkative, repeating " My bowels are falling ". Patient easily redirected, transfering sit to stand CGA, then ambulates with use of wh walker, CGA, 100'x 2 to her room, demonstrating steady jose. Patient able to walk backwards 5'x 2, CGA with no LOB before returning to Sharron chair in activity room. Patient remained with lap tray tray and body alarm under U staff Supervision. Will continue per POC as tolerated, total treatment time 17 minutes. Sharad Alamo, BREAKER UP MACHINE OPERATOR
[2019-07-04 07:14] VITALS: BP 106/68
--- NOTE | 2019-07-04 08:30 | NUR ---
Treatment Plan meeting was held this a.m. with Dr. Hernandez, RN, AT, ARTIST SCIENTIFIC-S and Event Decorator in attendance. Plan for discharge next week. Pt. will return to [facility] at discharge.
--- NOTE | 2019-07-04 09:13 | NUR ---
DR TAVERAS ON UNIT TO ASSESS PT. UPDATE PROVIDED TO
--- NOTE | 2019-07-04 11:43 | NUR ---
AM /BIJU BYRD PT ATTENDED MORNING GROUP THERAPY AND PARTICIPATED BY WATCHING THE PROGRAM. PT WAS QUIET AND ATTENTIVE FOR THE MOST PART BUT WOULD OCCATIONALLY COMPLAIN, "MY CHEST HURTS" PT NURSE WAS NOTIFIED.
--- NOTE | 2019-07-04 12:20 | NUR ---
P: PREOCCUPIED WITH CHEST PAIN, NERVE PAIN, GI UPSET ISSUE. PATIENT AWARE OF THESE SYMPTOMS ARE FROM HER ANXIETY. I: ONE ON ONE FOR EMOTIONAL SUPPORT; REDIRECTIONS, ENCOURAGE GROUP PARTICIPATION, ENCOURAGED PATIENT TO DO SOME DEEP BREATHING EXERCISES WITH DEMONSTRATION, OFFERED ACTIVITIES TO ASSIST WITH MANGING ANXIETY. R: INEFFECTIVE. PATIENT IS ALERT TO PERSON, PLACE, TIME AND SITUATION; ABLE TO VOICE NEEDS. MOOD IS IRRITABLE AT TIMES. DENIES ANY HALLUCINATIONS, DELUSIONS, HI/SI. MEDICATION COMPLAINT. Q 15 MINUTE SAFETY CHECKS MAINTAINED. PATIENT UP IN DINING ROOM MOST OF THE DAY. INTERACTIVE WITH STAFF ONLY, IMPROVEMENT NOTED. IN GROUP SESSION TODAY BUT WATCHED TV WITH OTHER PATIENTS. PATIENT CONTINUES ON 2 HOUR TOILETING SCHEDULE P: CONTINUE TO MONITOR ANXIETY, ISOLATION AND APPETITE. PROVIDE ONE ON ONE, REDIRECTION, UP OUT OF ROOM AND ENCOURAGED TO EAT MEALS.
--- NOTE | 2019-07-04 14:45 | NUR ---
PATIENT COMPLAINING OF GI UPSET. PRN MAALOX 30ML PO PER REQUEST.
--- NOTE | 2019-07-04 14:54 | NUR ---
PHYSICAL THERAPY CO-SIGN I approve of the Physical Therapy notes written above. Rosario Martinez PT
--- NOTE | 2019-07-04 15:11 | NUR ---
IP 3 additional days janet per Charlene at [facility], NRD 07/05. Ref # [id number]. Faxed continued review stay clinical.
--- NOTE | 2019-07-04 15:18 | NUR ---
OCCUPATIONAL THERAPY CO-SIGN I approve of the Occupational Therapy notes written above. Kat Elena, OTR/L
--- NOTE | 2019-07-04 15:35 | NUR ---
Clinical Updates faxed to [facility]. Updated facility of discharge plans for next week.
--- NOTE | 2019-07-04 15:48 | NUR ---
PM GROUP/BALL TOSS AND MOVIE PT ATTENDED AND PARTICIPATED FULLY IN AFTERNOON GROUP UNTIL SHE BECAME OBSESSED WITH HER BOWELS. PT WAS TOILETED AND RETURNED TO THE ROOM BUT BECAME A DISTRACTION BY REPEATEDLY SAYING, "I TOLD HER I STILL HAVE TO GO" PT WAS REMOVED FROM THE DAYROOM AND NURSE NOTIFIED
[2019-07-04 19:06] VITALS: BP 100/68
--- NOTE | 2019-07-04 21:51 | NUR ---
Patient alert and oriented x4. Mood irritable. Patient still preoccupied with her bowels and wanting Immodium. Patient bowel movements have been soft and formed. Patient also preoccupied with her incontinent briefs and wanting multiple briefs in her room. Patient is demanding at times. Patient compliant with HS medications with little encouragement. Educated patient on medications. Patient in diningroom during snacks,refused to eat her snack and was not interacting with other patients. Attempted to provide 1:1 for emotional support but patient refused. Plan to continue to encourage medication compliance and continue to offer emotional support. Also continue to encourage more interaction with staff and other patients and continue to monitor behavior/mood. Q 15 minute safety checks continued and maintained. See [facility] flowsheet for further documentation.
--- NOTE | 2019-07-05 00:08 | NUR ---
24 HR chart check completed.
--- NOTE | 2019-07-05 06:11 | NUR ---
Patient slept approx. 8 hours throughout shift without any interruptions. Q 15 minute safety checks continued and maintained.
[2019-07-05 07:25] VITALS: BP 110/64
--- NOTE | 2019-07-05 08:32 | NUR ---
Patient resting quietly with no c/o discomfort. Respirations easy and regular. Vital signs stable. No overt distress. TEJA COURTNEY
--- NOTE | 2019-07-05 10:00 | NUR ---
INVEGA 256 GIVEN IN RIGHT DELTOID PT TOLERATED WELL.
--- NOTE | 2019-07-05 11:38 | NUR ---
AM GROUP PT ATTENDED AND PARTICIPATED IN MORNING GROUP THERAPY BY COLORING. PT WAS ON TASK FOR THE MOST PART AND ONLY COMPLAINT THIS MORNING WAS THAT "I NEED TO GET OUT OF THIS CHAIR" PT EXPRESSED NO DELUSIONS OR PARANOIA WHILE IN GROUP
--- NOTE | 2019-07-05 14:37 | NUR ---
PM GROUP/FOOTBALL PT WAS PRESENT FOR AFTERNOON GROUP THERAPY AND CHOSE NOT TO PARTICIPATE IN ANY ACTIVITY OFFERED STATING, "I DON'T FEEL GOOD" PT WAS FOCUSED NO WANTING TO USE THE PHONE. PT EXPRESSED NO PARANOIA OR DELUSIONAL THINKING WHILE IN GROUP.
--- NOTE | 2019-07-05 14:57 | NUR ---
PT DID NOT WANT TO GET OUT OF BED THIS MORNING STATING "MY LEGS AREN'T WORKING". PT ASSISTED TO WHEELCHAIR, ASSISTED TO DINING ROOM FOR BREAKFAST. PT ATE ONLY SMALL AMOUNT OF BREAKFAST AND THEN WANTED TO LAY DOWN, PT ENCOURAGED TO PARTICIPATE IN GROUP THERAPY, PT AGREED TO STAY UP AND PARTICIPATE. WILL CONTINUE TO ENCOURAGE PARTICIPATION IN GROUP THERAPY FOR SOCIALIZATION AND SUPPORT. WILL CONTINUE TO MEET AND ANTICIPATE ALL NEEDS. WILL CONTINUE TO MONITOR Q15 MIN PER POLICY.
[2019-07-05 20:00] VITALS: BP 102/69
--- NOTE | 2019-07-05 21:48 | NUR ---
Patient alert and oriented x4. Mood very irritable. Patient still preoccupied with toileting and her incontinent briefs. Patient is demanding at times. Patient compliant with HS medications with little encouragement. Educated patient on medications. Patient in diningroom during snacks,refused to eat her snack and was not interacting with other patients. Attempted to provide 1:1 for emotional support but patient refused. Plan to continue to encourage medication compliance and continue to offer emotional support. Also continue to encourage more interaction with staff and other patients and continue to monitor behavior/mood. Q 15 minute safety checks continued and maintained. See [facility] flowsheet for further documentation.
--- NOTE | 2019-07-06 00:13 | NUR ---
24 HR chart check completed.
--- NOTE | 2019-07-06 05:48 | NUR ---
Patient slept approx. 6 hours throughout shift with no interruptions. Q 15 minute safety checks continued and maintained.
--- NOTE | 2019-07-06 07:00 | NUR ---
PHYSICAL THERAPY Patient seen this am for therapy visit and was just awakening supine in bed upon therapist arrival. Patient identified by name / and reports no new c/o's at this time. Patient transfers supine to sit EOB with MIN A, then sit to stand MIN/CGA. Patient ambulates 10'x 1 to bathroom, wh walker, CGA, then additional 30'x 1, demonstrating very slow, cautious jose. Patient c/o of increased dizziness and was returned to Sharron chair. Patient remained in Shraron chair with body alarm and moved to activity room awaiting breakfast under [facility] staff Supervision. Will continue per POC as tolerated, total treatment time 16 minutes. Sharad Alamo, CLOUD SYSTEMS ARCHITECT
--- NOTE | 2019-07-06 07:25 | NUR ---
OT NOTE Pt was seen this A.M. 1:1 for 25 minute OT session with ADULT LIVE IN CAREGIVER and nursing staff present for observation only. Upon arrival pt was supine in bed. Pt identified by name and and had complaints of feeling dizzy. Pt transferred supine to sit EOB with Gela for assist with UB. Sit to stand completed from bed level with Gela and use of w/w for UE support. Functional mobility was then completed into the bathroom with CGA and use of w/w. There she transferred on to standard commode with CGA. Pt doffed underpants and shirt with Gela while seated. Pants and shirt were then donned with modA for assist with sequencing and donning over her feet. Sit to stand completed from commode with Gela and use of w/w. Pt then stood sink side while brushing her hair and washing her hands with CGA for safety. Pt was left sitting upright in the svitlana chair in the dining room under [facility] staff supervision and body alarm activated for safety. COntinue with rec D/C plan to SNF. FOX Escobar/Moises
[2019-07-06 07:52] VITALS: BP 104/65
--- NOTE | 2019-07-06 08:04 | NUR ---
Patient sitting quietly with no c/o discomfort. Respirations easy and regular. Vital signs stable. No overt distress. RENEE JARAMILLO
--- NOTE | 2019-07-06 11:37 | NUR ---
AM GROUP/WATERCOLORS PT WAS IN GROUP FOR A FEW MINUTES BUT WAS REMOVED BY MHW DUE TO SOMATIC COMPLAINTS.
--- NOTE | 2019-07-06 15:06 | NUR ---
P: POOR COPING SKILLS, DEMANDING, SOMATIC (MIRRORING OTHERS PROBLEMS) ATTENTION SEEKING FROM PEERS. POOR INTAKE I: ENCOURAGE DEEP BREATHING EXCERCISE WHEN COMPLIANTS OF STOMACH ACHE OR CHEST PAIN. PT STATES THAT IT IS CAUSED FROM ANXIETY AND CAN BE SELF AWARE. PT PLACED ON TOILETING PLAN Q2 HOURS TO MEET NEEDS IN ADVANCE. ENCOURAGE INTAKE AND SUPPLEMENTS THROUGHOUT SHIFT. USE MERRY WALKER TO MAINTAIN AND INCREASE INDEPENDANCE, ASSIST PT WITH 1 ASSIST FOR TOILETING R: PT AMBULATING IN MERRY WALKER TO INCREASE MOBILITY. PT WILL DO BREATHING AND CALMING WITH ENCOURAGMENT BUT NOT INDEPENDENTLY. MAINTIANS MEDICATION COMPLIANT, NO SI/HI OR DELUSIONS P: CONTINUE WITH MONITORING BEHAVIORS AND PT INTERACTIONS WITH PEERS, MEALS. ENCOURAGE INDEPENDANCE, COPING SKILLS THROUGOUT. MONITOR 15 MIN CHECKS
--- NOTE | 2019-07-06 15:13 | NUR ---
PHYSICAL THERAPY CO-SIGN I approve of the Physical Therapy notes written above. Rosario Martinez PT
--- NOTE | 2019-07-06 15:40 | NUR ---
PM GROUP/LEISURE INTERESTS PT ATTENDED AFTERNOON GROUP THERAPY BUT REFUSED ANY ACTIVITY OFFERED. PT WAS NON STOP COMPLAINING OF AILMENTS BEGINNING WITH CHEST PAIN "SO BAD THAT I CAN FEEL IT GRINDING" TO "MY BUTT HURTS FROM SITTING SO LONG" TO "I CAN'T SEE, I CAN'T SEE YOU" PT CONTINUED THE ENTIRE GROUP SESSION.
[2019-07-06 20:00] VITALS: BP 110/72
--- NOTE | 2019-07-06 21:06 | NUR ---
P--SOMATIC/ HOPELESS HELPLESS I--TRIED TO DO 1:1 WITHOUT SUCCESS. EDUCATED ON MEDICATIOINS PRIOR TO GIVING. ATTEMPTED TO USE COPING TECH WITH CLIENT WITHOUT SUCCESS R--MY LEGS AND BUTT ARE NUMB, MY FEET ARE NUMB I LOST MY BOWELS. P--CONTINUE EMOTIONAL SUPPORT. MONITOR FOR CHANGE IN BEHAVIOR/MOOD. MONITOR FOR SAFETY.
--- NOTE | 2019-07-07 03:30 | NUR ---
24 HR chart check completed.
--- NOTE | 2019-07-07 05:27 | NUR ---
SLEPT FAIR LAST NIGHT PAST 2300PM. INTERMITTENT AWAKENINGS
[2019-07-07 07:45] VITALS: BP 100/62
--- NOTE | 2019-07-07 08:00 | NUR ---
Patient resting quietly with no c/o discomfort. Respirations easy and regular. Vital signs stable. No overt distress. TEJA COURTNEY
--- NOTE | 2019-07-07 11:54 | NUR ---
AM GROUP/EXERCISES/BALL TOSS PT ATTENDED AND PARTICIPATED TO BEST OF PT ABILITY. PT EXPRESSIVE WITH FLAT AFFECT AND SOMATIC COMPLAINTS. PT WILL CONTINUE TO ATTEND AND BE ENCOURAGED TO PARTICIPATE TO BEST OF PT ABILITY.
--- NOTE | 2019-07-07 12:15 | NUR ---
PT HAS HAD POOR APPETITE OVER THE PAST FEW DAYS. NUTRITIONAL SUPPLEMENTS ORDERED QID. DR. MACIAS MADE AWARE. N.O. RECEIVED FOR MARINOL WITH BREAKFAST AND SUPPER. NOW DOSE ADMINISTERED PER ORDER. PT RESISTIVE WITH ALL FLUIDS AND SOLIDS. MUCH ENCOURAGEMENT REQUIRED FROM STAFF. WILL CONTINUE TO MONITOR APPETITE AND LAB RESULTS. WILL CONTINUE TO ADMINISTER MEDICATIONS ORDERED. WILL CONTINUE TO MONITOR Q15 MIN PER POLICY.
--- NOTE | 2019-07-07 15:40 | NUR ---
PM GROUP/LEISURE SKILLS PT ATTENDED BUT CHOSE NOT TO PARTICIPATE. PT TOO OCCUPIED WITH SOMATIC COMPLAINTS. STAFF ATTEMPT TO REDIRECT PT BUT UNABLE TO. PT WILL CONTINUE TO ATTEND FUTURE RGOUP SESSIONS AND BE ENCOURAGED TO PARTICIPATE TO BEST OF PT ABILITY.
[2019-07-07 19:45] VITALS: BP 99/63
--- NOTE | 2019-07-07 21:04 | NUR ---
AFTER MUCH ENCOURAGMENT AND SUPPORT CLIENT ALLOWED ME TO FEED HER A CONTAINER OF ORANGES AND SHE DRANK 3/4 OF BOTTLE OF ENSURE AND SMALL AMOUNT WATER. SHE THEN WANTED USE TO TAKE HER TO HER ROOM IN A WHEELCHAIR BUT SHE FINALLY WALKED WITH WALKER. REMAINS SOMATIC WITH BOWELS, AND FEET,BUTT AND LEGS BEING NUMB. REDIRECTED THAT IT WOULD ALL CHANGE FOR THE BETTER IF SHE WOULD GET UP AND WALK AROUND DURING THE DAY. CLIENT NOT AGREEABLE WITH THAT SAYING "MY LEGS ARE ANXIETY"
--- NOTE | 2019-07-08 01:23 | NUR ---
24 HR chart check completed.
--- NOTE | 2019-07-08 05:33 | NUR ---
SLEPT INTERMITTENT PAST 0300AM. SOMATIC C/O OF INJURED SPINE AND SHE CAN'T MOVE HER LEGS OR ARMS WHILE WIGGLING FEET AND MOVING HANDS. =
--- NOTE | 2019-07-08 06:19 | NUR ---
CLIENT EXTREMELY DIFFICULT TO AMBULATE WALKING WITH WALKER AND 3 ASSIST. EMOTIONAL SUPPORT AND PRAISE GIVEN AND SHE SAID "I CAN'T WALK" AND TRIED TO BUCKLE HER KNEES. ASSISTED TO CHAIR AND SHE PRESSED FEET ON FLOO TO HELP REPOSITION HERSELF
[2019-07-08 06:46] LABS: ALBUMIN 3.7 gm/dl (3.1-4.5); CREATININE 2.02 mg/dL (0.55-1.02); POTASSIUM 3.6 mmol/L (3.5-5.1); TOTAL PROTEIN 6.4 gm/dL (6.4-8.2)
[2019-07-08 07:19] LABS: BASO % 0.3 % (0.0-1.0); EOS # 0.1 10*3/uL (0.0-0.4); EOS % 2.2 % (1.0-4.0); HEMATOCRIT 38.7 % (37.0-47.0); HEMOGLOBIN 12.6 g/dl (12.0-16.0); LYMPH # 1.7 10*3/uL (1.3-4.4); MEAN CELL VOLUME 84.5 fl (81.0-99.0); MEAN CORPUSCULAR HGB 27.5 pg (27.0-31.0); MEAN CORPUSCULAR HGB CONC 32.6 g/dl (33.0-37.0); MEAN PLATELET VOLUME 10.9 fl (9.6-12.3); MONO # 0.8 10*3/uL (0.1-1.0); MONO % 12.6 % (3.0-9.0); NEUT # 3.7 10*3/uL (2.3-7.9); NEUT % 57.7 % (47.0-73.0); PLATELET COUNT AUTOMATED 151 10*3/uL (130-400); RED BLOOD COUNT 4.58 10*6/uL (4.10-5.10); RED CELL DISTRI WIDTH 12.7 % (0-14.5); WHITE BLOOD COUNT 6.4 10*3/uL (4.8-10.8)
[2019-07-08 07:38] VITALS: BP 112/60
--- NOTE | 2019-07-08 08:06 | NUR ---
PT REFUSING TO EAT OR DRINK STATING "IT CAUSES DIARRHEA, IT ALL GO RIGHT OUT OF ME" PT ENCOURAGED TO DRINK HER ENSURE, ATTEMPTED TO EDUCATE HER AND REMIND HER THAT SHE HAS NOT BEEN HAVING LOOSE STOOLS.
--- NOTE | 2019-07-08 08:12 | NUR ---
PT AT BREAKFAST TABLE BECAME NON-VERBAL WITH HEAD SLUMPED OVER, PUPILS MINIMALLY RESPONSIVE WITH POOR RESPONSE, RAPID RESPONSE CALLED
--- NOTE | 2019-07-08 08:20 | NUR ---
RAPID RESPONSE TEAM RESPONDED, PT BLOOD PRESSURE NON AUDIBLE, DROOLING, HEAD SLUMPED, 2 IV STARTED BY ICU NURSES, PT BECAME MORE ALERT THROUGH OUT THE EVALUATION, AT THIS TIME, PT MEDICAL NEEDS OUT WEIGH MENTAL HEALTH AND IS TO BE DISCHARGED TO MEDICAL UNIT.
--- NOTE | 2019-07-08 08:48 | NUR ---
PT DISCHARGED WITH BELONGINGS AND LOCK BOX INFORMATION TO 4N
[2019-07-08 08:52] LABS: ALBUMIN 3.8 gm/dl (3.1-4.5); CREATININE 2.24 mg/dL (0.55-1.02); TOTAL PROTEIN 6.6 gm/dL (6.4-8.2)
[2019-07-08] MEDS ORDERED: MARINOL2.5 M1 PO (08:53)
[2019-07-08] MEDS ORDERED: KLONOPIN2 M1 PO (08:54)
[2019-07-08] MEDS ORDERED: INVEGA9 MG PO (08:54)
--- NOTE | 2019-07-08 09:03 | NUR ---
DISCHARGE PHOTOS WERE UNABLE TO BE TAKEN D/T PT CONDITION. NURSING BUSINESS BANKING MANAGER, JOAQUIN, MADE AWARE.
--- NOTE | 2019-07-09 12:22 | NUR ---
Faxed CCR and d/c to [facility]. Awaiting response.
[2019-07-09 22:06] LABS: DESIPRAMINE 131 ng/mL (Not Estab.); IMIPRAMINE (TORFANIL) 176 ng/mL (Not Estab.); TOTAL IMIPRAMINE + DESIPRAMINE 307 ng/mL (175-300)
--- NOTE | 2019-07-10 07:12 | NUR ---
OCCUPATIONAL THERAPY CO-SIGN I approve of the Occupational Therapy notes written above. MALIK HAMLIN OTR/Moises
== END 2019-07-08 08:30 | disposition short-term general hospital (02) | DRG 885 ==
LOC: 3N 15:57
PROVIDERS: Internal Medicine; ADMIT Psychiatry & Neurology Psychiatry
DX: F25.9 Schizoaffective disorder, unspecified (principal); F02.81 Dementia in other diseases classified elsewhere, unspecified severity, with behavioral disturbance; I10 Essential (primary) hypertension; F32.9 Major depressive disorder, single episode, unspecified; F41.9 Anxiety disorder, unspecified; R07.9 Chest pain, unspecified; G30.9 Alzheimer's disease, unspecified; E55.9 Vitamin D deficiency, unspecified; E53.8 Deficiency of other specified B group vitamins; R53.1 Weakness; R73.9 Hyperglycemia, unspecified; Z88.0 Allergy status to penicillin; Z88.8 Allergy status to other drugs, medicaments and biological substances; Z83.3 Family history of diabetes mellitus; Z80.8 Family history of malignant neoplasm of other organs or systems; Z79.899 Other long term (current) drug therapy

== ENCOUNTER 2019-07-08 08:40 | Inpatient (IN) | payer OTHER ==
[~2019-07-08] VITALS: Ht 167.6 cm; Wt 68.9 kg
[2019-07-08] VITALS (9 sets, daily range): BP systolic 97–151; BP diastolic 53–94
--- NOTE | ~2019-07-08 | CON ---
[place], [place] REPORT OF CONSULTATION NAME: COMPA ARMANDO UNIT #: [id number] ROOM: 421 DOCTOR: ELOINA MACIAS MD BIRTHDATE: [birth year] DOS: 07/09/2019 PSYCHIATRIC CONSULTATION CHIEF COMPLAINT: "I don't feel well." HISTORY OF PRESENT ILLNESS: This is a 63-year-old white female known to me from my private practice in [place], [place] as well as several long-term care placements; the most recently being [facility] in [place]. The patient was admitted to the [facility] because of significant depression, anxiety and somatic delusions. While in the course of her treatment psychiatrically, the patient did have an unresponsive episode requiring a rapid response and ultimately a transfer to the medical unit. Psychiatrically, she remains depressed, anxious and delusional and believes that she can no longer move, that she cannot eat or drink. She remains fretful and anxious and is not able to attend to her ADLs or cope. MENTAL STATUS: She is alert and oriented with some time gaps. Mood does seem to be depressed with anxious overtones. She is somatically delusional. She is not willing to eat or drink as she is fearful that food will go right through her. Her memory does have some mild gaps. PLAN: I will start her on Remeron 15 mg at bedtime and Zyprexa 5 mg in the a.m. The Zyprexa is being used in conjunction with Invega Sustenna given the severity of her psychiatric illness. The patient suffers from severe schizoaffective disorder and a single antipsychotic alone has not been effective at breaking her psychotic symptomatology. I am hopeful that the appetite stimulating effect of both the Zyprexa and the Remeron will help override some of her delusions and allow her to eat and drink more readily. When she is medically stable, I do believe she is still appropriate to be transferred back to the [facility] for further psychiatric stabilization. ELOINA MACIAS MD CM:CONSTR:REPORT OF CONSULTATION 0 07/09/19918 interface
[~2019-07-08 08:40] MED LIST changes: +ACIDOPHILUS1 EAC4 PO; +ANTI-DIARRHEAL2 MG PO; +ATIVAN1 MG PO; +B121000 MCG/1 IM; +CYMBALTA60 MG PO; +INVEGA SUSTENN234 MG IM; +METAMUCIL PACK3.4 GM PO; +TUSSIN DM 10 M237 M1 PO; +VISTARIL50 MG PO; +VITAMIN D34000 UNIT PO
--- NOTE | 2019-07-08 08:40 | NUR ---
A 63, admitted to , under the services of MARYAM Gudino DO with a diagnosis of SCHIZOPRENIA, HYPOTENSION. Chief complaint is HYPOTENSION. Patient arrived via stretcher from [place]. Monitor applied. Initial assessment completed. Vital signs taken and recorded. MARYAM GUDINO DO notified of admission to the unit. Orders received. See assessment for past medical history, medications and allergies. Patient and/or family oriented to unit. [address] visitation policy reviewed. Clothing/patient valuable form completed. PATIENT'S BP CURRENTLY 97/53. 100% RA. TEMP 97.2 F ORAL. HR 67. HEIDI JOHNSON
[2019-07-08] MEDS ORDERED: MARINOL2.5 M1 PO (08:53)
[2019-07-08] MEDS ORDERED: INVEGA9 MG PO (08:54)
[2019-07-08] MEDS ORDERED: KLONOPIN2 M1 PO (08:54)
--- NOTE | 2019-07-08 11:20 | NUR ---
PATIENT UP TO BEDSIDE COMMODE WITH 1 ASSIST. TOLERATED WELL. NO COMPLAINTS OF DIZZINESS/LIGHTHEADEDNESS. BACK IN BED. CALL LIGHT WITHIN REACH. BED ALARM ON. NO COMPLAINTS AT THIS TIME. WILL CONTINUE TO MONITOR.
--- NOTE | 2019-07-08 12:23 | NUR ---
NOTIFIED DR GUERIN OF COMPLETED MED REC
--- NOTE | 2019-07-08 13:13 | NUR ---
Patient resting quietly with no c/o discomfort. Respirations easy and regular. Vital signs stable. No overt distress. CALL LIGHT WITHIN REACH. WILL CONTINUE TO MONITOR. HEIDI JOHNSON
--- NOTE | 2019-07-08 20:25 | NUR ---
PATIENT GIVEN PRN TYLENOL AND RESTORIL FOR DISCOMFORT IN HER LEGS AND SLEEP. WILL MONITOR FOR EFFECTIVENESS. CALL LIGHT WITHIN REACH. BED ALARM ON FOR SAFETY.
--- NOTE | 2019-07-08 21:25 | NUR ---
PRN TYLENOL EFFECTIVE PER PATIENT. PRN RESTORIL NOT EFFECTIVE AT THIS TIME.
--- NOTE | 2019-07-08 22:37 | NUR ---
24 HR chart check completed.
[2019-07-09] VITALS: BP 100/61
--- NOTE | 2019-07-09 01:15 | NUR ---
PRN NORCO GIVEN FOR C/O 10/10 PAIN IN HER BACK AND LEGS. BED ALARM ON FOR SAFETY. CALL LIGHT WITHIN REACH. WILL MONITOR FOR EFFECTIVENESS.
--- NOTE | 2019-07-09 01:28 | NUR ---
PATIENT REPOSITIONED FOR COMFORT. CALL LIGHT WITHIN REACH.
[2019-07-09 02:00] VITALS: BP 98/60
--- NOTE | 2019-07-09 02:23 | NUR ---
PATIENT STATING THE PRN NORCO DID NOT HELP HER PAIN. PATIENT'S MANUAL BLOOD PRESSURE IS 98/60. RN EXPLAINED TO PATIENT THAT SHE HAD NOTHING ELSE FOR PAIN ORDERED THAT WOULD NOT DROP HER BLOOD PRESSURE. RN OFFERED TYLENOL BUT PATIENT DECLINED STATING THAT WOULD NOT HELP.
[2019-07-09 06:34] LABS: BASO % 0.4 % (0.0-1.0); EOS # 0.1 10*3/uL (0.0-0.4); EOS % 2.9 % (1.0-4.0); HEMATOCRIT 30.9 % (37.0-47.0); HEMOGLOBIN 9.9 g/dl (12.0-16.0); LYMPH # 1.1 10*3/uL (1.3-4.4); LYMPH % 39.1 % (27.0-41.0); MEAN CORPUSCULAR HGB 26.9 pg (27.0-31.0); MEAN PLATELET VOLUME 10.8 fl (9.6-12.3); MONO # 0.3 10*3/uL (0.1-1.0); MONO % 9.7 % (3.0-9.0); NEUT # 1.3 10*3/uL (2.3-7.9); NEUT % 47.5 % (47.0-73.0); PLATELET COUNT AUTOMATED 110 10*3/uL (130-400); RED BLOOD COUNT 3.68 10*6/uL (4.10-5.10); RED CELL DISTRI WIDTH 12.8 % (0-14.5); WHITE BLOOD COUNT 2.8 10*3/uL (4.8-10.8)
[2019-07-09 06:41] LABS: ALBUMIN 2.7 gm/dl (3.1-4.5); ALKALINE PHOSPHATASE 63 U/L (45-117); CHLORIDE 109 mmol/L (98-107); CHOLESTEROL 129 mg/dL (<200); CREATININE 0.77 mg/dL (0.55-1.02); HDL CHOLESTEROL 41 mg/dl (40-60); LDL CHOLESTEROL 74 mg/dL (9-159); PHOSPHOROUS 2.9 mg/dL (2.5-4.9); POTASSIUM 3.6 mmol/L (3.5-5.1); SGOT/AST 22 IU/L (3-35); SGPT/ALT 17 U/L (12-78); SODIUM 139 mmol/L (136-145); TOTAL PROTEIN 4.9 gm/dL (6.4-8.2); TRIGLYCERIDES 69 mg/dl (<150); VLDL CHOLESTEROL 14 mg/dL (6-40)
[2019-07-09 06:47] LABS: FREE T4 1.22 ng/dl (0.76-1.46)
[2019-07-09 07:25] LABS: VITAMIN D, 25-HYDROXY 77.2 ng/mL (30-100)
[2019-07-09 07:30] LABS: BUN 23 mg/dl (7-24)
[2019-07-09 08:00] VITALS: BP 100/78
--- NOTE | 2019-07-09 08:27 | NUR ---
HELD AM LISINOPRIL FOR BP 100/78 MANUALLY, HELD METAMUCIL FOR C/O DIARRHEA YESTERDAY, MEDICATED WITH PRN PO NORCO FOR C/O BILATERAL LEGS PAIN.
--- NOTE | 2019-07-09 09:15 | NUR ---
DR. MACIAS IN TO SEE PATIENT RE: PLAN OF CARE, MEDICATION ORDERS ENTERED.
--- NOTE | 2019-07-09 11:25 | NUR ---
Spoke with Nicky Nurse at [facility]. Advised Nicky that Patient had transferred to medical Floor 07/08/19 and is currently on the 5th floor. Pt. will most likely return to [facility] when Medically Stable for further stablization with return to [facility] at discharge. Clinical Updates faxed to Facility [phone].
--- NOTE | 2019-07-09 11:48 | NUR ---
PATIENT TRANSFERRED TO [facility], REPORT GIVEN TO RECEIVING RN.
--- NOTE | 2019-07-09 11:50 | NUR ---
PATIENT TRANSFERED FROM , REPORT OBTAINED FROM MONY CHAVEZ.
--- NOTE | 2019-07-09 12:00 | NUR ---
Neurological: AAOX3: ANXIOUS Respiratory: ROOM AIR, NONLABORED Breath sounds: DIMINISHED T/O Cough: NONE NOTED Cardiovascular: DENIES CP/PRESSURE, NO EDEMA, PPP Gastrointestinal: NORMOACTIVE X4 QUADS, C/O STOMACH PAIN AND INCONTINENCE. Genito/Urinary INCONTINENCE PER PATIENT Musculoskeketal: NONAMBULATORY PER PATIENT, SKIN INTACT PATIENT IS IN BED WITH NO S/S OF DISTRESS NOTED AT THIS TIME. PATIENT STATES "I AM PARALYZED FROM THE WAIST DOWN AND I CAN NOT WALK." INFORMED PATIENT THAT IF SHE CAN FEEL NURSE TOUCHING FEET AND CHECKING FOR EDEMA SHE IS NOT PARALYZED. BED IS LOW, LOCKED, ALARMED, AND CALL LIGHT IS WITHIN REACH. PATIENT PULLED UP IN BED AND POSITIONED FOR LUNCH. WILL CONTINUE TO MONITOR SEE SHIFT ASSESSMENT. RAVI MCCOY A
--- NOTE | 2019-07-09 14:44 | NUR ---
Occupational Therapy evaluation offered this date. Patient could not participate in evaluation; became tearful at times, then increased in agitation when encouraged to participate in sitting edge of bed. Patient verbalized multiple complaints: not being able to eat because the food is hard, when softer food offered, patient reports she "can't",then she couldn;t drink because then she would need to go to the bathroom, when informed that staff would help her, she complained about going to the bathroom and reports that her bottom hurts, etc. Patient was assisted for max comfort in bed and left with call button and bed alarm on. OTR will attempt at a later date. Nurse informed. Dulce Maria Packer OTR/art
--- NOTE | 2019-07-09 14:54 | NUR ---
PHYSICAL THERAPY Attempted to see pt for evaluation, unable to complete as pt refusing and becoming more agitated with attempts to have her move/sit up at the edge of the bed. States her legs are "paralyzed" but able to wiggle toes/ankles. Spoke with nursing will follow Rosario Martinez PT
[2019-07-09 16:00] VITALS: BP 131/82
--- NOTE | 2019-07-09 19:00 | NUR ---
ASSUMED CARE FOR THIS PT AT THIS TIME. PT AWAKE IN BED. C/O CONSTIPATION. ABD FIRMLY DISTENDED. PT HAVING AN INCONTINENCE EPISODE OF BM AT THIS TIME. INCONTINENCE CARE GIVEN. BED IN LOW POSITION W/ALARM ON AND CALL LIGHT IN REACH.
[2019-07-09 20:00] VITALS: BP 150/85
--- NOTE | 2019-07-09 22:34 | NUR ---
PT MEDICATED W/DULCOLAX FOR C/O CONSTIPATION. ABD FIRMLY DISTENDED. PT ASSISTED TO BSC W/MUCH ENCOURAGEMENT. PT MEDICATED W/NORCO FOR C/O BLE PAIN. PT RESPONDED TO TACTILE STIMULI TO BILATERAL FEET. PT STATES SHE HAS NO FEELING IN FEET AND HER LEGS ARE PARALYZED. PT TEACHING GIVEN. PT NON RECEPTIVE.
[2019-07-10] VITALS: BP 140/85
--- NOTE | 2019-07-10 04:19 | NUR ---
PT MEDICATED W/NORCO FOR C/O ABD PAIN.
--- NOTE | 2019-07-10 06:51 | NUR ---
PT C/O BUTTOCK PAIN. PT TURNED ONTO SIDE. PT STATES THAT THIS PARALYZES HER LEGS AND SHE NEEEDS NICOLLE IBARRA FOR HER RUMP. PT TEACHING GIVEN.
[2019-07-10 07:02] LABS: BASO % 0.3 % (0.0-1.0); EOS # 0.1 10*3/uL (0.0-0.4); EOS % 2.1 % (1.0-4.0); HEMATOCRIT 36.8 % (37.0-47.0); HEMOGLOBIN 11.6 g/dl (12.0-16.0); LYMPH # 0.7 10*3/uL (1.3-4.4); LYMPH % 19.1 % (27.0-41.0); MEAN CELL VOLUME 85.8 fl (81.0-99.0); MEAN CORPUSCULAR HGB CONC 31.5 g/dl (33.0-37.0); MEAN PLATELET VOLUME 11.1 fl (9.6-12.3); MONO # 0.4 10*3/uL (0.1-1.0); MONO % 9.3 % (3.0-9.0); NEUT # 2.6 10*3/uL (2.3-7.9); NEUT % 68.7 % (47.0-73.0); PLATELET COUNT AUTOMATED 117 10*3/uL (130-400); RED BLOOD COUNT 4.29 10*6/uL (4.10-5.10); WHITE BLOOD COUNT 3.8 10*3/uL (4.8-10.8)
[2019-07-10 07:22] LABS: BUN 16 mg/dl (7-24); CHLORIDE 109 mmol/L (98-107); CREATININE 0.69 mg/dL (0.55-1.02); PHOSPHOROUS 3.2 mg/dL (2.5-4.9); POTASSIUM 3.6 mmol/L (3.5-5.1); SODIUM 141 mmol/L (136-145)
[2019-07-10 08:00] VITALS: BP 140/90
--- NOTE | 2019-07-10 09:00 | NUR ---
case management visits with patient, she will return to U when medically stable, discharge potentially for today, case management will follow
--- NOTE | 2019-07-10 10:01 | NUR ---
PHYSICAL THERAPY Discussed pt's status in meeting pt to be transfered back to U unit and therapy to be reconsulted at that time will follow Rosario Martinez PT
[2019-07-10 12:00] VITALS: BP 137/78
--- NOTE | 2019-07-10 14:41 | NUR ---
No Occupational Therapy evaluation completed today as patient is to [facility] today. Dulce Maria Packer OTr/l
[2019-07-10] MEDS ORDERED: OLANZAPINE5 MG PO (15:15)
[2019-07-10] MEDS ORDERED: MIRTAZAPINE15 M2 PO (15:15)
[2019-07-10 16:00] VITALS: BP 129/79
--- NOTE | 2019-07-10 20:00 | NUR ---
PT LEFT FLOOR TO RETURN TO U.
--- NOTE | 2019-07-10 20:40 | NUR ---
Discharge instructions reviewed with patient/family. Patient receptive and verbalizes understanding. Follow-up care arranged. Written instructions given to patient/family. FERNANDO SOLORIO
== END 2019-07-10 20:56 | disposition home health service (06) | DRG 73 ==
LOC: 4E 08:40 → 5E 08:40 → 4E 08:55 → 5E 07-09 10:22
PROVIDERS: Internal Medicine; ADMIT Internal Medicine
DX: G90.8 Other disorders of autonomic nervous system (principal); N17.0 Acute kidney failure with tubular necrosis; E43 Unspecified severe protein-calorie malnutrition; E87.1 Hypo-osmolality and hyponatremia; E86.1 Hypovolemia; I95.89 Other hypotension; E87.8 Other disorders of electrolyte and fluid balance, not elsewhere classified; F20.9 Schizophrenia, unspecified; R55 Syncope and collapse; R73.9 Hyperglycemia, unspecified; F32.9 Major depressive disorder, single episode, unspecified; E86.0 Dehydration; I10 Essential (primary) hypertension; F41.9 Anxiety disorder, unspecified; G30.9 Alzheimer's disease, unspecified; F02.80 Dementia in other diseases classified elsewhere, unspecified severity, without behavioral disturbance, psychotic disturbance, mood disturbance, and anxiety; E53.8 Deficiency of other specified B group vitamins; E55.9 Vitamin D deficiency, unspecified; Z83.3 Family history of diabetes mellitus; Z80.8 Family history of malignant neoplasm of other organs or systems; Z88.8 Allergy status to other drugs, medicaments and biological substances; Z88.0 Allergy status to penicillin; Z79.899 Other long term (current) drug therapy

== ENCOUNTER 2019-07-10 18:31 | Inpatient (IN) | payer OTHER ==
[~2019-07-10] VITALS: Ht 152.4 cm; Wt 63.6 kg
[~2019-07-10 18:31] MED LIST changes: +INVEGA9 MG PO; +KLONOPIN2 M1 PO; +MARINOL2.5 M1 PO; +OLANZAPINE5 MG PO
[2019-07-10 20:10] VITALS: BP 112/80
--- NOTE | 2019-07-10 20:10 | NUR ---
COMPA ARMANDO a 64 year old F admitted via wheel chair from the [facility] FLO[facility] as a voluntary by guardian admission. Arrived on unit at 2010pm. ALLERGIES: PCN, HALOPERIDOL. Vital signs are: 97.7-93-16 112/80. The Guardian gave verbal permission via phone and witness by 2 RN's for the following forms with stated understanding: Authorization For The Release of Medical Information, Clothing List, Consent to Voluntary Admission and Hospitalization, Consent and Release Forms/Receipt of Rights, Acknowledgement of Advance Directive Information, Behavioral Health Consent Form, and Informed Consent of Medications. Admitted under the services of Dr. GILBERTO DEL RIO,[facility]. A search was conducted and hazardous articles were removed. Client was oriented to the unit. WILDA ARMANDO
--- NOTE | 2019-07-10 22:59 | NUR ---
DR ELLIS HERE EARLIER TO SEE CLIENT. INFORMED HIM MEDICATION REC READY FOR HIM
--- NOTE | 2019-07-10 23:04 | NUR ---
WITH MUCH ENCOURAGMENT AND MENTAL HEALTH WORKER FEEDING HER SHE DID EAT 1/2 OF HER SNACK. ORANGES AND BOOST
--- NOTE | 2019-07-11 04:48 | NUR ---
24 HR chart check completed.
--- NOTE | 2019-07-11 06:16 | NUR ---
SLEPT GOOD TILL 0430AM THIS AM
[2019-07-11 07:34] VITALS: BP 138/80
[2019-07-11 08:09] LABS: ALBUMIN 3.7 gm/dl (3.1-4.5); ALKALINE PHOSPHATASE 81 U/L (45-117); BUN 15 mg/dl (7-24); CHLORIDE 107 mmol/L (98-107); CHOLESTEROL 165 mg/dL (<200); CREATININE 0.69 mg/dL (0.55-1.02); HDL CHOLESTEROL 48 mg/dl (40-60); LDL CHOLESTEROL 89 mg/dL (9-159); POTASSIUM 3.9 mmol/L (3.5-5.1); SGOT/AST 22 IU/L (3-35); SGPT/ALT 20 U/L (12-78); SODIUM 141 mmol/L (136-145); TOTAL PROTEIN 6.8 gm/dL (6.4-8.2); TRIGLYCERIDES 138 mg/dl (<150); VLDL CHOLESTEROL 28 mg/dL (6-40)
[2019-07-11 08:11] LABS: BASO % 0.5 % (0.0-1.0); EOS # 0.1 10*3/uL (0.0-0.4); EOS % 2.5 % (1.0-4.0); HEMATOCRIT 39.4 % (37.0-47.0); HEMOGLOBIN 12.5 g/dl (12.0-16.0); LYMPH # 0.9 10*3/uL (1.3-4.4); LYMPH % 19.4 % (27.0-41.0); MEAN CELL VOLUME 85.8 fl (81.0-99.0); MEAN CORPUSCULAR HGB 27.2 pg (27.0-31.0); MEAN CORPUSCULAR HGB CONC 31.7 g/dl (33.0-37.0); MEAN PLATELET VOLUME 10.7 fl (9.6-12.3); MONO # 0.5 10*3/uL (0.1-1.0); MONO % 10.1 % (3.0-9.0); NEUT % 67.3 % (47.0-73.0); PLATELET COUNT AUTOMATED 152 10*3/uL (130-400); RED BLOOD COUNT 4.59 10*6/uL (4.10-5.10); RED CELL DISTRI WIDTH 13.2 % (0-14.5); WHITE BLOOD COUNT 4.4 10*3/uL (4.8-10.8)
--- NOTE | 2019-07-11 08:15 | NUR ---
Treatment Plan meeting was held with Dr. Hernandez, RN, AT, SLOT OPERATIONS MANAGER-S and Attending Ambulatory Care in attendance. Plan for discharge next week. Pt. to return to [facility] at discharge.
--- NOTE | 2019-07-11 10:39 | NUR ---
DR. OH ON UNIT TO ASSESS PT, UPDATE PROVIDED.
--- NOTE | 2019-07-11 11:30 | NUR ---
Faxed admission to [facility] mental health. Awaiting response.
--- NOTE | 2019-07-11 12:09 | NUR ---
P: PT DELUSIONAL STATING TO STAFF THAT SHE IS PARALYZED AND CANNOT MOVE HER ARMS OR LEGS. PT REFUSING TO EACH LUNCH. PT PREOCCUPIED WITH USING THE BATHROOM. I: PROVIDE EMOTIONAL SUPPORT AND 1:1 FOR PT TO VOICE FEELINGS, ENCOURAGE MED COMPLIANCE AND PROVIDE MED EDUCATION, PRESENT REALITY THAT PT IS NOT PARALYZED AND IS CAPABLE OF MOVING HER ARMS AND LEGS. ENCOURAGE PO INTAKE. PT PALCED ON Q2H TOILETING SCHEDULE. R: PT CONTINUES TO SAY THAT SHE IS PARALYZED, PRESENTATION OF REALITY INEFEFCTIVE. PT MED COMPLIANT WITH MINIMAL DIFFICULTY, MED EDUCATION PROVIDED. PT OBSERVED AT THIS TIME TAKING A FEW BITES OF LUNCH, STAFF WILL CONTINUE TO ENCOURAGE INTAKE. PT CONTINUES TO BE PREOCCUPIED WITH TOILETING. PT ALERT TO PERSON, PLACE AND TIME. PT DENIES ANY SUICIDAL THOUGHTS. PT UP TO A WHEELCHAIR, REFUSING TO AMBUALE WITH STAFF OR STAND AT THIS TIME. PT CONTINENT OF BOWEL AND BLADDER. P: MONITOR PT BEHAVIORS ON Q15 MIN SAFETY CHECKS, ENCOURAGE MED COMPLIANCE AND PROVIDE MED EDUCATION, PROVIDE EMOTIONAL SUPPORT AND 1:1 FOR PT TO VOICE FEELINGS. CONTINUE TO PRESENT REALITY. CONTINUE TO TOILET PT ON Q2H SCHEDULE.
--- NOTE | 2019-07-11 12:37 | NUR ---
AM GROUP PT WAS PRESENT FOR MORNING GROUP THERAPY BUT DID LITTLE TO PARTICIPATE AND WAS RELENTLESS AND KEPT REPEATING OVER AND OVER, "MY LEGS ARE PARALYZED...I CAN'T STAND UP...I WANT TO WALK AGAIN...MY SPINE IS BLEEDING...I CAN'T FEEL MY SKIN...MY LEGS ARE NUMB, YOU WON'T BELIEVE ME..." PT MADE THESE STATEMENTS OVER AND OVER THE ENTIRE TIME AND PEERS BEGAN FEEDING OFF OF HER AND BECOMING SOMATIC. PT WAS NOT RECEPTIVE TO ANY FORM OF REDIRECTION.
--- NOTE | 2019-07-11 13:15 | NUR ---
Please refer to psychosocial assessment completed on 06/29/19.
--- NOTE | 2019-07-11 13:57 | NUR ---
Clinical Updates faxed to [facility] Attn: Nurse. [phone].
--- NOTE | 2019-07-11 15:44 | NUR ---
PM GROUP PT WAS PRESENT FOR AFTERNOON GROUP THERAPY SEATED IN A WHEELCHAIR. PT BEHAVIOR WAS IN SHARP CONTRAST FROM THIS MORNINGS GROUP WHERE PT COMPLAINED NONSTOP OF "MEDICAL" ISSUES. PT DID NOT SAY A WORD AND JUST SAT AND OBSERVED OTHERS AND WATCHED TV.
[2019-07-11 19:56] VITALS: BP 102/66
--- NOTE | 2019-07-11 20:22 | NUR ---
Patient quietly sitting in w/c with no c/o discomfort. Respirations easy and regular. Vital signs stable. No overt distress. TEJA COURTNEY
--- NOTE | 2019-07-11 20:30 | NUR ---
pt drank 120cc of water with hs meds.
--- NOTE | 2019-07-11 23:20 | NUR ---
pt with somatic complaints. stating she can not eat or drink hs snack d/t "it will run right through me". pt also stating her "legs are numb" and "in the wrong place". pt redirected, encouraged to eat and drink, pt reassured of safety. administered medications per orders. pt unreceptive to redirection, pressing call light for somatic complaints multiple times prior to falling asleep in her bed. pt repositioned and reassured of safety multiple times. will continue to redirect and reassure pt of safety as appropriate. will present reality as appropriate. q15 min monitoring per policy.
--- NOTE | 2019-07-12 03:48 | NUR ---
24 HR chart check completed.
--- NOTE | 2019-07-12 07:25 | NUR ---
PHYSICAL THERAPY Physical therapy evaluation completed, 3N. Full details/evaluation to follow. High complexity determined after evaluation/chart review, [id number]. PT to work on strength, gait, balance, ROM, transfers and safety. Recommending SNF at discharge. Thank you Olive De León, PT, DPT
--- NOTE | 2019-07-12 08:15 | NUR ---
Patient not appropriate for OT at this time. She is agitated in gerichair. OTR will attempt at a later time. Dulce Maria Packer OTR/art
--- NOTE | 2019-07-12 08:22 | NUR ---
P: PT REFUSED AM PO MEDS. PT REFUSED BREAKFAST. PT C/O FEELING LIKE SHE NEEDED TO USE THE BATHROOM. PT PREOCCUPIED/OBSESSIVE WITH USING THE BATHROOM. PT MOOD IS IRRITABLE WITH STAFF. PT HAS MULTIPLE SOMATIC COMPLIANTS INCLUDING STATING THAT SHE CAN'T STAND, SHE CAN'T SIT, SHE CAN'T BREATHE BECAUSE SHE HAS NO NASAL PASSAGES. ATTEMPTING TO THROW FOOD AT STAFF, ATTEMPTING TO THROW SELF OUT OF WHEELCHAIR. I: ENCOURAGED MED COMPLIANCE AND PROVIDED MED EDUCATION. ENCOURAGED PO INTAKE. PT WAS TOILETED AT 0800, OFFERED SCHEDULED METAMUCIL AND MILK OF MAG. PROVIDED ORIENTATION AND PRESENTED REALITY. OFFERED PT GERICHAIR TO SIT IN WITH LEGS ELEVATED, ENCOURAGE PT TO PARTICIPATE IN ADLS. PROVIDE EMOTIONAL SUPPORT AND 1:1 FOR PT TO VOICE FEELINGS R: PT CONTINUES TO REFUSE AM PO MEDS, REFUSED MILK OF MAG. PT TOOK 5 BITES OF YOGURT WITH MUCH ENCOURAGEMENT. REORIENTATION AND PRESENTATION OF REALITY INEFFECTIVE, PT UNRECEPTIVE. PT SITTING IN GERICHAIR AT THIS TIME WITH LEGS ELEVATED. PT ALERT TO PERSON, PT REFUSED TO ANSWER OTHER ORIENTATION QUESTIONS. P: MONITOR PT BEHAVIORS ON Q15 MIN SAFETY CHECKS, ENCOURAGE MED COMPLIANCE AND PROVIDE MED EDUCATION, CONTINUE TO REORIENT AND PRESENT REALITY. PROVIDE EMOTIONAL SUPPORT AND 1:1 FOR PT TO VOICE FEELINGS. ENCOURAGE PT TO PARTICIPATE IN ADLS
[2019-07-12 08:31] VITALS: BP 117/69
--- NOTE | 2019-07-12 09:30 | NUR ---
Treatment Plan meeting was held this a.m. with Dr. Hernandez, RN, AT, GUM MACHINE OPERATOR-S and Millinery Salesperson in attendance. Plan for discharge Next week. Dr. Hernandez recommending LTC at [facility] where Patient was better managed with Complex Needs.
--- NOTE | 2019-07-12 10:26 | NUR ---
Left a voicemail message for pt's guardian Sita Moran requesting a return call to discuss pt's status and discharge plan. Await return call.
--- NOTE | 2019-07-12 10:32 | NUR ---
Spoke with pt's guardian Sita Moran and provided update to pt's status. Discussed discharge and Sita agrees that pt should return to [facility] instead of the assisted living. Referral will be made to [facility].
--- NOTE | 2019-07-12 10:52 | NUR ---
DR. OH ON UNIT TO ASSESS PT, UPDATE PROVIDED.
[2019-07-12 11:10] VITALS: BP 117/69
--- NOTE | 2019-07-12 11:38 | NUR ---
AM GROUP PT WAS PRESENT FOR MORNING GROUP THERAPY SITTING AT THE BACK OF THE ROOM IN A CAROL CHAIR WITH TRAY ON. PT DECLINED ANY ACTIVITY OFFERED STATING, "MY STOMACH HURTS...I CAN'T TALK...THEY WON'T BELIEVE ME..." AND OTHER SOMATIC COMPLAINTS.
--- NOTE | 2019-07-12 11:48 | NUR ---
Left a voicemail message at [facility] requesting status of [facility] that was submitted on 07/02/19.
--- NOTE | 2019-07-12 11:48 | NUR ---
Referral faxed to [facility] for [facility] Attn: Admissions.
--- NOTE | 2019-07-12 15:40 | NUR ---
Occupational Therapy evaluation completed on 3 with full eval to follow. Precautions include fall risk, 3n unit precautions, patient will resist movement and push back, many somatic complaints that are a barrier to her participating in therapy, high complexity level [id number]. Recommend OT per pOC on a trial basis dependent upon patients ability to participate. REcommend d/c to SNF to enable max ability to function. Thank you. Dulce Maria Packer OTR/L
--- NOTE | 2019-07-12 15:42 | NUR ---
PM GROUP PT WAS PRESENT FOR AFTERNOON GROUP THERAPY BUT REFUSED ANY ACTIVITY OFFERED. PT WAS EXTREMELY SOMATIC AND CONSTANTLY COMPLAINING, "MY BUT HURTS...I CAN'T WALK...THEY WON'T LET ME USE THE BATHROOM...MY LEGS ARE PARALYZED...I HAVE A BRAIN INJURY AND CAN'T THINK RIGHT..."
--- NOTE | 2019-07-12 16:10 | NUR ---
Call Received from Josselin at [facility]. Pt. accepted Pending [facility] approval. Will Follow.
[2019-07-12 19:38] VITALS: BP 115/79
--- NOTE | 2019-07-13 00:14 | NUR ---
pt with somatic complaints. stating she is "paralyzed" and "I can't walk". also stating to staff "you hurt my spinal cord" while getting her face washed. pt also sitting on toilet shaking her legs stating "my legs are trembling" pt redirected, pt reassured of safety, presented with reality multiple times. administered medications per orders. pt unreceptive to redirection, unable to accept reality presentation. medication compliant only with much encouragement. will continue to redirect. will present reality as appropriate. q15 min monitoring per policy. pt in bed resting quietly, bed in lowest position, bed alarm on.
--- NOTE | 2019-07-13 05:54 | NUR ---
pt slept one hour total.
--- NOTE | 2019-07-13 06:34 | NUR ---
MILK OF MAGNESIA 30CC PO GIVEN PER PRN ORDER FOR CONSTIPATION
--- NOTE | 2019-07-13 07:05 | NUR ---
PHYSICAL THERAPY Patient seen this am for therapy visit and was sitting up in activity room Sharron chair upon therapist arrival. Patient identified by name / and repeatedly voiced random c/o's of B knee pain, BM running down her legs and a hard block of BM she is sitting on. OT emergency veterinary assistant was present for observation only this morning as patient needed multiple verbal / tactile cues to redirect and focus on therapy task. Patient transfers sit to stand MIN A x 2 and ambulated 10'x 2 to bathroom, MIN A, wh walker, demonstrating very unsteady gait pattern and LOB x 2 during 180 turns. Patient unable to maintain focus on task and is a very high risk for falls. Patient returned to Sharron chair and remained in activity room with lap tray / body alarm under U staff Supervision. Will continue per POC as tolerated, total treatment time 16 minutes. Sharad Alamo, JOB PUTTER UP AND TICKET PREPARER
--- NOTE | 2019-07-13 07:17 | NUR ---
OT NOTE Pt was seen this A.M. 1:1 for 17 minute OT session with MANAGER ANALYTICAL and nursing staff present for observation only. Upon arrival pt was sitting upright in the svitlana chair in the dining room. Pt identified by name and and had multiple somatic complaints. Pt was taken to her bedroom where she completed sit to stand transfer from chair level with Gela X 2 and use of w/w for UE support. Functional mobility was then completed into the bathroom with Gela and use of w/w, pt presented with retorograde posture throughout. Pt then stood sink side while attempting to wash her hands; however, task was unable to be completed due to pt being unable to be redirected from somatic complaints and being unable to follow commands. Functional mobility was then completed back to the svitlana chair with Gela and use of w/w. Pt had LOB while turning that required modA to correct. Pt was left sitting upright in the svitlana chair in the dining room with lap tray in place, body alarm activated for safety, and under U staff supervision. Continue with rec D/C plan to SNF. FOX Escobar/Moises
[2019-07-13 07:45] VITALS: BP 125/77
--- NOTE | 2019-07-13 07:49 | NUR ---
Patient resting quietly with no c/o discomfort. Respirations easy and regular. Vital signs stable. No overt distress. GIVENS,KATIE
--- NOTE | 2019-07-13 09:31 | NUR ---
Treatment Plan meeting was held this a.m. with Dr. Hernandez, RN, MATERIAL LISTER-S and Block Piler. Plan for discharge Next week. Pt. is accepted at [facility] Pending [facility] approval.
--- NOTE | 2019-07-13 09:45 | NUR ---
[facility] returns approved. Pt. is able to enter Nursing Facility. Call Placed to [facility] to notify [facility]. Left Voice Mail.
--- NOTE | 2019-07-13 09:56 | NUR ---
Received Call From aMriam at [facility]. They are able to provide SNF and Skilled Nursing Care Services at their Facility. Call was placed to Legal Guardian Sita Moran and she would [facility]. Left Message for Reza at [facility].
--- NOTE | 2019-07-13 09:59 | NUR ---
Updates and Copy of PASRR faxed to Digna May.
--- NOTE | 2019-07-13 10:08 | NUR ---
Spoke with Josselin at [facility] Via Telephone. Notified that Legal Guardian would prefer [facility] and Pt. not return to [facility] due to being closer to family. Call Placed to [facility] and spoke with Ruth Ann [phone], advised of Guardian Wishes and that patient will discharge to [facility] When Stable.
--- NOTE | 2019-07-13 10:19 | NUR ---
Spoke with Josselin again at [facility]. Pt. will discharge to [facility] Next week. Pt. requires Precert Prior to discharge. Will update on Tuesday with Current Clinical Information.
--- NOTE | 2019-07-13 11:00 | NUR ---
ON UNIT TO SEE PT AT THIS TIME. MADE AWARE OF EXCORIATION NOTED TO UNDERSIDE OF LEFT BREAST AND OF PT'S VARIOUS PHYSICAL COMPLAINTS. ALSO MADE AWARE PT HAS NOT HAD A DOCUMENTED BM SINCE ADMISSION WITH MILK OF MAG GIVEN THIS AM WITHOUT EFFECT. ASSESSED PT.
--- NOTE | 2019-07-13 11:41 | NUR ---
Telephone Orders received from Dr. Hernandez For SNF at Discharge for PT/OT.
--- NOTE | 2019-07-13 12:36 | NUR ---
P- PT CONTINUES WITH DELUSIONAL THOUGHT PROCESSES AND CONTINUES TO VOICE MULTIPLE SOMATIC COMPLAINTS. PT STATES SHE HER LEGS AND FEET ARE PARALYZED AND STATES HER BREASTS ARE "LEAKING FROM THE SIDES" AND "MELTING OFF". PT REQUESTED THIS NURSE BRING HER SOME TAPE TO PREVENT BREASTS FROM FALLING OFF. I- ORIENTATION, MOOD AND BEHAVIOR ASSESSED. ASSESSED PT FOR SI/HI, INTENT OR PLAN. ASSESSED PT FOR S/S HALLUCINATIONS, PARANOIA AND/OR DELUSIONS. MEDICATIONS ADMINISTERED PER PHYSICIAN'S ORDERS. ASSISTANCE WITH ADL CARE PROVIDED NEEDED. ENCOURAGED PT TO ATTEND AND PARTICIPATE IN [facility] GROUPS ACTIVITIES. R- PT IS ALERT AND ORIENTED TO PERSON, PLACE AND APPROXIMATE TIME. RESPS EASY AND EVEN ON ROOM AIR. MEMORY DEFICITS NOTED. MOOD APPEARS DEPRESSED, HOPELESS/HELPLESS WITH PERIODS OF ANXIETY NOTED. AFFECT IS FLAT. SPEECH IS SOFT, COHERENT, ABLE TO MAKE NEEDS KNOWN WITHOUT DIFFICULTY. PT DENIES SI/HI, INTENT OR PLAN. PT DENIES HALLUCINATIONS, NO RESPONSE TO INTERNAL STIMULI NOTED. PT CONTINUES WITH MULTIPLE SOMATIC COMPLAINTS AND CONTINUES TO VOICE VARIOUS DELUSIONAL THOUGHT PROCESSES SUCH HER LEGS/FEET BEING PARALYZED, PT STATES SHE IS "SITTING ON A BLOCK OF POO", STATES HER BREASTS ARE "LEAKING" AND "MELTING OFF". PT REQUESTED THIS NURSE BRING HER TAPE SO SHE COULD PREVENT HER BREASTS FROM FALLING OFF. UPON ASSESSMENT PT IS ABLE TO MOVE ALL EXTREMITIES. PT TOLIETED. BREASTS ASSESSED WITH NO DRAINAGE NOTED. SMALL AREA OF EXCORIATION NOTED UNDER LEFT BREAST WITH NEW ORDERS RECIEVED FROM FOR NYSTATIN POWDER. ATTEMPTS TO PRESENT REALITY TO PT ARE UNSUCCESSFUL. NO DISTRESS NOTED. P- PLAN TO CONTINUE CURRENT TREATMENT, CONTINUE TO MONITOR MOOD AND BEHAVIORS, PROVIDE APPROPRIATE REORIENTATION, REDIRECTION AND 1:1 NEEDED. CONTINUE TO ENCOURAGE MEDICATION COMPLIANCE WELL GROUP ATTENDANCE AND PARTICIPATION.
--- NOTE | 2019-07-13 14:30 | NUR ---
PT CALLING OUT "HELP ME. HELP ME PLEASE". THIS NURSE ASSESSED PT. PT STATES SHE NEEDS HELP WITH HER BREASTS. THIS NURSE ASSESSED, PT STATES "LOOK! THEY'RE FLAT! THEY'RE ROLLING BACK TO MY SPINE!" PT CONTINUES TO STATE A LIQUID IS COMING OUT OF HER BREASTS. UPON ASSESSMENT NO DRAINAGE NOTED. NYSTATIN POWDER APPLIED TO SMALL AREA OF EXCORIATION UNDER PT'S LEFT BREAST ORDERED BY . PT REMAINS FIXATED ON HER BREASTS AT THIS TIME DESPITE MULTIPLE ATTEMPTS TO REDIRECT BY DIFFERENT STAFF MEMBERS.
--- NOTE | 2019-07-13 15:13 | NUR ---
Sat with pt this afternoon. Pt was complaining of breast pain and became tearful. Empathized with pt and redirected pt to conversation about pt's mother and brother. Pt stayed on this topic briefly and returned to talking about breast pain. Attempted to distract pt with offering a magazine or a book. Pt politely refused. Pt requested that this engineering technical writer speak to the nurse about pt's breasts. Left pt and spoke with Carolina CHAVEZ who is aware of pt's complaint and has been addressing pt's concern.
--- NOTE | 2019-07-13 15:21 | NUR ---
OCCUPATIONAL THERAPY CO-SIGN I approve of the Occupational Therapy notes written above. MALIK HAMLIN OTR/Moises
[2019-07-13 15:39] LABS: BILIRUBIN 1+ (NEGATIVE); BLOOD NEGATIVE (NEGATIVE); CLARITY SL CLOUDY (CLEAR); COLOR YELLOW (YELLOW); GLUCOSE NEGATIVE (NEGATIVE); KETONE 2+ (NEGATIVE); LEUKO ESTERASE NEGATIVE (NEGATIVE); NITRITE NEGATIVE (NEGATIVE); PH 5.5 (5.0-9.0); SPECIFIC GRAVITY >= 1.030 (1.005-1.030); UROBILINOGEN 0.2 E.U./dl (0.2-1.0)
[2019-07-13 15:52] LABS: BACTERIA 1+; MUCOUS 2+
[2019-07-13 19:45] VITALS: BP 108/62
--- NOTE | 2019-07-13 22:13 | NUR ---
Patient alert and oriented to person,place and approximate time. Memory deficits noted. Mood depressed,hopeless/helpless. No hallucinations noted at this time. Patient having somatic delusions stating "I can't walk. My feet won't move." Patient standing and with assistance of one staff member was able to walk from sink after washing face and brushing her teeth to her bed. Patient compliant with HS medications without any difficulty. Provided 1:1 for emotional support. Plan to continue to encourage medication compliance and continue to provide emotional support. Q 15 minute safety checks continued and maintained. See [facility] flowsheet for further documentation.
--- NOTE | 2019-07-14 00:12 | NUR ---
24 HR chart check completed.
--- NOTE | 2019-07-14 05:29 | NUR ---
Patient slept approx. 7.5 hours throughout shift. Q 15 minute safety checks continued and maintained.
--- NOTE | 2019-07-14 07:42 | NUR ---
PT ASSISTED OUT OF BED AT THIS TIME BY MENTAL HEALTH WORKER. PT AWAKE AND ALERT, RESPS EASY AND EVEN ON ROOM AIR. ASSISTED TO DINING ROOM FOR BREAKFAST. NO DISTRESS NOTED.
[2019-07-14 07:45] VITALS: BP 121/76
--- NOTE | 2019-07-14 08:25 | NUR ---
PT REFUSED ALL MORNING PO MEDICATIONS THIS DATE, STATES "I STILL HAVEN'T GOTTEN ANY RELIEF FROM MY STOMACH, I NEED TO POO". +BSX4. PT REFUSED METIMUCIL DESPITE EDUCATION. WILL DISCUSS WITH HOSPITALISTS.
--- NOTE | 2019-07-14 10:43 | NUR ---
MICHELE DRIVE IN THEATER ATTENDANT ON UNIT TO SEE PT AT THIS TIME, UPDATE GIVEN.
--- NOTE | 2019-07-14 11:00 | NUR ---
ON UNIT TO SEE PT AT THIS TIME, UPDATE GIVEN. MADE AWARE PT CONTINUES TO C/O CONSTIPATION WITH NO DOCUMENTED BM.
--- NOTE | 2019-07-14 11:50 | NUR ---
AM GROUP/EXERCISE/MUSIC/BRAIN GAMES PT CHOSE NOT TO PARTICIPATE BUT DID ATTEND. PT OBSERVING GROUP FROM BACK OF ROOM. BUT CONTINUES TO HAVE SOMATIC COMPLAINTS.
--- NOTE | 2019-07-14 12:19 | NUR ---
ATTEMPTED TO ADMINISTER MAG CITRATE ORDERED BY D/T PT C/O CONSTIPATION THIS MORNING. PT NOW DENIES CONSTIPATION AND IS REFUSING TO EAT LUNCH CITING A MULTITUDE OF DIFFERENT SOMATIC COMPLAINTS. PT STATES "I CAN'T MOVE MY FEET" SHE LIFTS THEM OFF THE FLOOR. THIS NURSE SAT WITH PT FOR AN EXTENDED PERIOD OF TIME ATTEMPTING TO ENCOURAGE PT TO EAT LUNCH AND DRINK MAG CITRATE ORDERED. PT REFUSES, REPEATEDLY STATES "HOW DO YOU EXPECT ME TO WALK SIDEWAYS? YOU EXPECT ME TO STAND UP SIDEWAYS?" UNABLE TO REDIRECT AT THIS TIME.
--- NOTE | 2019-07-14 12:45 | NUR ---
P- DELUSIONAL THOUGHT PROCESSES, PREOCCUPIED WITH VARIOUS SOMATIC COMPLAINTS. POOR PO INTAKE. I- ORIENTATION, MOOD AND BEHAVIOR ASSESSED. ASSESSED PT FOR SI/HI, INTENT OR PLAN. ASSESSED PT FOR S/S HALLUCINATIONS, PARANOIA AND/OR DELUSIONS. ADMINISTERED MEDICATIONS PER PHYSICIAN'S ORDERS. REORIENTATION, REDIRECTION AND 1:1 ATTEMPTED. ENCOURAGED PT TO ATTEND AND PARTICIPATE IN [facility] GROUPS AND ACTIVITIES. R- PT IS ALERT AND ORIENTED PERSON, PLACE, APPROXIMATE TIME. NOT ORIENTED TO SITUATION. PT STATES SHE DOESN'T KNOW WHY SHE'S HERE. RESPS EASY AND EVEN ON ROOM AIR. MOOD APPEARS DEPRESSED, HOPELESS/HELPLESS AND ANXIOUS. AFFECT IS FLAT. SPEECH IS SOFT, PRESSURED AT TIMES. PT CONTINUES TO VOICE VARIOUS SOMATIC COMPLAINTS AND DELUSIONAL THOUGHT PROCESSES. PT REPEATEDLY STATING "WHAT AM I SUPPOSED TO DO? WALK SIDEWAYS?" PT PREOCCUPIED WITH HOW OFTEN SHE USES THE BATHROOM. POOR PO INTAKE CONTINUES DESPITE ENCOURAGEMENT FROM STAFF AND EDUCATION ABOUT THE IMPORTANCE OF PROPER NUTRITION AND HYDRATION. PT VERY DIFFICULT TO REDIRECT OR ENGAGE IN MEANINGFUL CONVERSATION PT IS OVERWHELMINGLY PREOCCUPIED WITH HER VARIOUS COMPLAINTS WELL DISORGANIZED THOUGHT PROCESSES. PT REFUSED AM MEDICATIONS, PT DID TAKE 1100 ROUTINELY SCHEDULED DOSE OF MARINOL. NO DISTRESS NOTED. P- PLAN TO CONTINUE CURRENT TREATMENT, CONTINUE TO OBSERVE BEHAVIORS, PROVIDE APPROPRIATE REORIENTATION, REDIRECTION AND 1:1 NEEDED. CONTINUE TO ENCOURAGE MEDICATION COMPLIANCE WELL GROUP ATTENDANCE AND PARTICIPATION. PT C/O PANTS BEING TOO TIGHT. MENTAL HEALTH WORKER ASSISTED PT TO BATHROOM AND ATTEMPTED TO CHANGE PANTS, PT REFUSED AND WANTED THE SAME PANTS PUT BACK ON. PT CONTINUES TO REPEATEDLY VOICE VARIOUS COMPLAINTS WITH PRESSURED SPEECH SUCH "I CAN'T WALK SIDEWAYS, I CAN'T WALK ON THE SIDE OF MY FOOT, I CAN'T CONCENTRATE ON ANYTHING, I'M A NERVOUS WRECK, I CAN'T WAIT 45 MINUTES" ETC. REDIRECTION AND 1:1 CONTINUE TO BE INEFFECTIVE. PT TOILETED AND REPOSITIONED TO CHAIR IN POSITION OF COMFORT AND PLACED IN FRONT OF TV TO ATTEMPT DISTRACTION TECHNIQUE. Q15 MIN MONITORING CONTINUES.
--- NOTE | 2019-07-14 14:50 | NUR ---
PHONES UNIT REGARDING PT: MADE AWARE PT REFUSED TO DRINK MAG CITRATE AND NO BM OF THIS TIME. NNO RECEIVED AT THIS TIME, STATES WILL CONT TO MONITOR.
--- NOTE | 2019-07-14 15:39 | NUR ---
PM GROUP/CRAFTS/LEISURE PT RECLINED AT THIS TIME OBSERVING GROUP AND OFFERED ACTIVITY BUT PT CHOSE NOT TO PARTICIPATE. PT CONTINUES WITH SOMATIC COMPLAINTS THROUGHOUT GROUP. PT WILL CONTINUE TO ATTEND AND BE ENCOURAGED OT PARTICIPATE IN GROUP.
--- NOTE | 2019-07-14 17:45 | NUR ---
PT REFUSED DINNER DESPITE MULTIPLE ATTEMPTS TO ENCOURAGE PT TO EAT BY THIS RN, 2ND RN AND MENTAL HEALTH WORKER. PT STATES SHE CAN'T EAT BECAUSE HER ANKLES ARE BLACK AND BLUE. UPON ASSESSMENT NO BLACK AND/OR BLUE DISCOLORATIONS NOTED TO BILATERAL ANKLES. PT ALSO STATES SHE CAN'T EAT BECAUSE SHE'S STILL UPSET ABOUT YESTERDAY. THIS NURSE ASKED PT WHAT SHE WAS UPSET ABOUT THAT HAPPENED YESTERDAY, PT STATES "MY BOOBS ROLLED AWAY AND NOW I'M FLAT CHESTED". PT CONTINUES TO BE EXTREMELY DIFFICULT TO REDIRECT AND REFUSES TO ACCEPT REALITY. PT ATE ONE SMALL CONTAINER OF APPLESAUCE WITH MUCH ENCOURAGEMENT AND DRANK A SMALL AMOUNT OF MILK.
[2019-07-14 19:52] VITALS: BP 128/78
--- NOTE | 2019-07-14 20:59 | NUR ---
P--PARANOID, CONFUSED I--REDIRECTED TO PLACE AND TIME. MEDICATED PER ORDERS. EMOTIONAL SUPPORT PROVIDED. TRIED TO REDIRECT TO BODY REALITY. REINFORCED CALL LIGHT SYSTEM. REMINDED HER WE CKECK ON HER EVERY 15 MINUTES. R--OH NO IT WILL COME OUT MY NOSE, IT WILL GO RIGHT THROUGH ME. I CAN'T HOLD THE CUP. HOW AM I GOING TO GO TO THE BATHROOM I CAN'T PUSH DOWN ON MY LEGS THEY ARE NUMB P--CONTINUE EMOTIONAL SUPPORT. MONITOR FOR CHANGES IN BEHAVIOR/MOOD. MONITOR FOR SAFETY
--- NOTE | 2019-07-14 21:30 | NUR ---
MIX 1/4 CUP OF MAG CITRATE WITH 1/2 BOTTLE ENSURE. WITH ENCOURAGEMENT SHE DRANK IT ALL
--- NOTE | 2019-07-15 02:15 | NUR ---
24 HR chart check completed.
--- NOTE | 2019-07-15 06:26 | NUR ---
KLONOPIN 2MG PO NOT AVAILABLE IN PIXES
--- NOTE | 2019-07-15 06:27 | NUR ---
SLEPT APPROX 7 HOURS WITH MINIMAL INTERUPTION. HAD SMALL GREEN EMESIS DURING MORNING CARE.
[2019-07-15 07:44] VITALS: BP 135/78
--- NOTE | 2019-07-15 09:08 | NUR ---
DR OH ON UNIT TO SEE PATIENT
--- NOTE | 2019-07-15 14:35 | NUR ---
SPOKE DR. PLUMMER AT [phone] RE: PT HAVING +[address] PLUMMER QUESTIONED WHAT PT BP WAS THIS MORNING ADVISED IT WAS 135/78. NO FURTHER ORDERS AT THIS TIME.
--- NOTE | 2019-07-15 16:16 | NUR ---
P: PT HAS MULTIPLE SOMATIC COMPLIANT SUCH STATING "I CAN'T TALK, I CAN'T EAT AND DRINK. MY MOUTH IS HOT." PT DISRUPTIVE TO MILEUI, YELLING OUT. PT RESISITIVE TO AM MEDS. POOR PO INTAKE. I: PROVIDE EMOTIONAL SUPPORT AND 1:1 FOR PT TO VOICE FEELINGS, ENCOURAGE MED COMPLIANCE AND PROVIDE MED EDUCATION, PRESENT REALITY AND PROVIDE RE-ORIENTATION. PROVIDE LOW STIMULATION ENVIRONMENT FOR PT TO CALM. ENCOURAGE PO INTAKE R: PT ALERT TO PERSON ONLY, REFUSED TO ANSWER ANY ADDITIONAL ORIENTATION QUESTIONS DUE TO BEING PREOCCUPIED WITH SOMATIC COMPLIANTS. PT UNRECEPTIVE TO PRESENTATION OF REALITY AND RE-ORIENTATION. PT CONTINUES TO HAVE POOR PO INTAKE, REQUIRES MUCH ENCOURAGEMENT TO TAKE JUST A FEW BITES. PT CONTINUES TO YELL OUT AND BE DISRUPTIVE TO MIELUI EVEN AFTER PLACED IN LOW STIMULATION ENVIRONMENT. PT UP TO A GERICHAIR, REQUIRES 1 STAFF ASSIST FOR CARE AND TRANSFERS. PT CONTINENT OF BOWEL AND BLADDER. NO HALLUCINATIONS NOTED. NO SUICIDAL BEHAVIORS NOTED. P: MONITOR PT BEHAVIORS ON Q15 MIN SAFETY CHECKS, ENCOURAGE MED COMPLIANCE AND PROVIDE MED EDUCATION, CONTINUE TO PROVIDE LOW STIMULATION ENVIRONMENT FOR PT TO CALM. CONTINUE TO PRESENT REALITY AND RE-ORIENT NEEDED. PROVIDE EMOTIONAL SUPPORT AND 1:1 FOR PT TO VOICE FEELINGS. CONTINUE TO ENCOURAGE PO INTAKE.
[2019-07-15 19:50] VITALS: BP 125/75
--- NOTE | 2019-07-15 21:21 | NUR ---
BREAKTHROUGH WITH CLIENT. SHE TOOK CRUSHED PILLS IN APPLESAUCE WITHOUT DIFFICULTY. SHE THAN DRANK AN ENTIRE CUP OF ENSURE WITH MINIMAL SUPPORT. SHE INTERACTED AND DID LAUGH AND SMILE AT THE FACT THAT SHE WAS "FARTING" AND SAID I WILL BE FARTING ALL NIGHT. REMAINS PREOCCUPIED WITH POSSIABLE EFFECTS THAT DRINKING WILL HAVE ON HER. CONTINUE WITH REORIENTATION TO REALITY, EMOTIONAL SUPPORT AND TO MONITOR FOR CHANGES IN BEHAVIOR/MOOD .
--- NOTE | 2019-07-16 05:18 | NUR ---
PT SLEPT 6 HOURS
--- NOTE | 2019-07-16 05:19 | NUR ---
24 HR chart check completed.
[2019-07-16 07:51] VITALS: BP 102/65
--- NOTE | 2019-07-16 08:15 | NUR ---
Treatment Plan meeting was held with Dr. Hernandez RN, AT, LOCOMOTIVE ENGINEER DIESEL-S and Medical Records Specialist in attendance. Plan for discharge at the end of the week. Will reach out to facility today to discuss discharge plans.
--- NOTE | 2019-07-16 08:35 | NUR ---
OT NOTE Pt was seen this A.M. 1:1 for 15 minute OT session with DREDGE OPERATOR SUPERVISOR and nursing staff present for observation only. Upon arrival pt was sitting upright in the svitlana chair in the dining room. Pt identified by name and on wristband and had many somatic complaints throughout entire session. Pt was taken out into the hallway where she completed multiple sit to stand transfers from chair level with modA X 2 and use of hand rail for UE support. Challenged pt's static standing tolerance needed for increased I in self care tasks and functional transfers. Pt was able to tolerate aprox 60 seconds before sitting due to fatigue and being unable to redirect from somatic complaints. Attempted to completed functional mobility to the bedroom to complete an ADL task and after aprox 15 feet pt sat down due to fatigue and "pain her feet and her arms not bending." Pt was left sitting upright in the svitlana chair in the dining room under [facility] staff supervision. Continue with rec D/C plan to SNF. FOX Escobar/Moises
--- NOTE | 2019-07-16 08:56 | NUR ---
PHYSICAL THERAPY Patient presented to therapy in recumbant postion in sharron-chair with report of havign UE weakness and vague pain everywhere. Patient agrees to therapy session. Patient was identified by name and on wristband. Patient performed sit to stand from Sharron-chair with MOD A X 2. Patient is confused and at times seems to be hallucinating. Patient perseverating on her weak arms and legs. Patient performed ambulation with Wh Walker and MIN A X 1 for moving LEs forwards and for moving Wh Walker forwards. Patient required verbal cues and manual cues for advancing walker and increasing ALEXANDRO as well as step through. Patient ambulated 20' X 1 with Wh Walker and MIN A X 2. Patient is a fall risk! Patient attempted LAQs, but was unable to complete due to being unable to follow directions and perseverating about being weak. patient was left in SHARRON-CHAIR wit hchair alarm attached, recumbant position, in activity room wit [facility] staff present. FOX VERA PRESENT WITNESS FOR TREATMENT. Patient was 1:1 with this CORPORATE ASSOCIATE ATTORNEY 20 minutes total. ULISES HERRERA CORPORATE ASSOCIATE ATTORNEY
--- NOTE | 2019-07-16 09:30 | NUR ---
ON UNIT TO SEE PT AT THIS TIME.
--- NOTE | 2019-07-16 10:04 | NUR ---
Spoke with Josselin at [facility]. Advised of plans to discharge at the end of the week. Josselin to start Precert for SNF today, Josselin states if Precert returns Precert is only good for 48 hours after it is received so Pt. would have to discharge if she is stable. Faxed Updates to [facility] Attn: Josselin [phone].
--- NOTE | 2019-07-16 11:38 | NUR ---
AM GROUP PT DID NOT ATTEND MORNING GROUP THERAPY. PT WAS IN A QUIET ROOM RECLINED IN A CAROL CHAIR. WHEN ASKED TO JOIN GROUP PT STATED, "THEY WON'T LET ME GO TO THE BATHROOM EVERY 2 HOURS. I HAVEN'T GONE SINCE 6 THIS MORNING"
--- NOTE | 2019-07-16 15:38 | NUR ---
PM GROUP PT WAS PRESENT FOR AFTERNOON GROUP THERAPY BUT WAS SO SOMATIC THAT PT WAS UNABLE TO PARTICIPATE IN ANY ACTIVITY. PT COMPLAINTS WERE THE SAME PREVIOUS DAYS, NOT BEING ABLE TO USE HER LEGS OR HANDS, NOT GOING TO THE BATHROOM, ETC. PT COULD NOT BE DISTRACTED.
--- NOTE | 2019-07-16 16:06 | NUR ---
P- PT CONTINUES TO BE PREOCCUPIED WITH VARIOUS MULTIPLE SOMATIC DELUSIONS, UNABLE TO REDIRECT. MOOD REMAINS DEPRESSED, HOPELESS/HELPLESS WITH FLAT AFFECT. MEDICATION COMPLIANT WITH ENCOURAGEMENT. PT REFUSED LUNCH. I- ORIENTATION, MOOD AND BEHAVIOR ASSESSED. ASSESSED PT FOR SI/HI, INTENT OR PLAN. ASSESSED PT FOR S/S HALLUCINATIONS, PARANOIA AND/OR DELUSIONS. MEDICATIONS ADMINISTERED PER PHYSICIAN'S ORDERS. ASSISTANCE WITH ADL CARE PROVIDED NEEDED. ENCOURAGED PT TO ATTEND AND PARTICIPATE IN [facility] GROUPS AND ACTIVITIES. R- PT IS ALERT AND ORIENTED TO PERSON, PLACE, APPROXIMATE TIME. MEMORY GAPS NOTED. RESPS EASY AND EVEN ON ROOM AIR. MOOD REMAINS DEPRESSED, HOPELESS/HELPLESS, ANXIOUS WITH FLAT AFFECT. SPEECH IS SOFT AND SLOW. ABLE TO MAKE NEEDS KNOWN. PT REMAINS PREOCCUPIED WITH VARIOUS SOMATIC COMPLAINTS SUCH "I CAN'T LIFT THIS CUP TO DRINK IT, MY ARMS ARE PARALYZED", PT MAKES THIS STATEMENT WHILE REACHING FOR A DRINK OF WATER ON THE TABLE IN FRONT OF HER AND THEN BRINGING THE STRAW TO HER MOUTH. PT UNRECEPTIVE TO REALITY, UNABLE TO REDIRECT. PT ATE 75% OF BREAKFAST BUT REFUSED LUNCH DESPITE ENCOURAGEMENT, PT FIXATED ON SOMATIC COMPLAINTS AND UNABLE TO REDIRECT. PT'S PARTICIPATION IN GROUPS AND ACTIVITIES IS LIMITED D/T PT'S PREOCCUPATION AND DIFFICULTY REDIRECTING PT. PT DENIES SI/HI, INTENT OR PLAN. PT DENIES HALLUCINATIONS, NO RESPONSE TO INTERNAL STIMULI NOTED. PT MED COMPLIANT THIS DATE WITH ENCOURAGEMENT. NO AGGRESSIVE BEHAVIORS DISPLAYED. NO DISTRESS NOTED. P- PLAN TO CONTINUE CURRENT TREATMENT, CONTINUE TO MONITOR MOOD AND BEHAVIORS, PROVIDE APPROPRIATE REORIENTATION, REDIRECTION AND 1:1 NEEDED. CONTINUE TO ENCOURAGE MEDICATION COMPLIANCE WELL GROUP ATTENDANCE AND PARTICIPATION.
--- NOTE | 2019-07-16 17:48 | NUR ---
SHIFT CHART CHECK COMPLETED.
[2019-07-16 19:49] VITALS: BP 106/74
--- NOTE | 2019-07-16 21:30 | NUR ---
Patient alert to self and place with some confusion noted. Memory deficits noted. Mood depressed,hopeless/helpless. No hallucinations noted at this time. Patient having somatic delusions stating "I think I broke my toe while sitting at table." Able to wiggle all toes without any difficulty or any discomfort. Patient standing and with assistance of one staff member was able to walk from her wheelchair to her bed. Patient compliant with HS medications without any difficulty. Provided 1:1 for emotional support. Plan to continue to encourage medication compliance and continue to provide emotional support. Q 15 minute safety checks continued and maintained. See [facility] flowsheet for further documentation.
[2019-07-17 00:10] LABS: CLONAZEPAM (KLONOPIN),SERUM 81 ng/mL (20-70)
--- NOTE | 2019-07-17 00:16 | NUR ---
24 HR chart check completed.
--- NOTE | 2019-07-17 05:44 | NUR ---
Patient slept approx. 7 hours throughout shift. Q 15 minute safety checks continued and maintained.
--- NOTE | 2019-07-17 06:28 | NUR ---
THIS NURSE WAS GETTING PT OUT OF BED WITH MENTAL HEALTH WORKER, PT TALKING TO THIS NURSE, STATING SHE DIDN'T NEED TO MOVE, ENCOURAGED TO MOVE ON HER OWN, PT ASSISTED LIGHTLY BY 2 STAFF TOWARD BATHROOM, WHEN PT WENT LIMP WITH MOVEMENT QUIT BEARING WEIGHT, THIS NURSE AND AIDE ASSISTED HER TO THE FLOOR GENTLY LAYING PT ON HER BACK, PT WAS PUFFING AIR THROUGH LIPS, EYES ROLLED TO THE RIGHT LOOKING AWAY WITH BLANK STARE, 99.6 BP 70/50M 108 PULSE 88 SPO2 WHICH INCREASED TO 93 % PT AROUSED AND RETURNED TO AWAKENED STATE, STAFF SAT PT UP AND PT TALKED TO STAFF APPEARED TO IMPROVE WITH COLOR AND ALERTNESS
--- NOTE | 2019-07-17 06:30 | NUR ---
DR. HASTINGS UPDATED AT 0630 OF PT EPISODE VS AND ALERTNESS, DISCUSSED PT BEING MOVED TO MEDICAL FLOOR.
--- NOTE | 2019-07-17 06:35 | NUR ---
PT BECAME UNRESPONSIVE WITH STAFF UPON ATTEMPTING TO TRANSFER TO CAROL CHAIR, ARECHIGA IN COLOR, PT DID NOT RESPOND TO STERNAL RUB, RAPID RESPONSE CALLED, APICAL PULSE AUDIBLE
--- NOTE | 2019-07-17 06:38 | NUR ---
HEART RATE BECAME INAUDIBLE RAPID TEAM BEGAN TO ASSIST PT, THIS NURSE CALLED DICKSON MUÑIZ
--- NOTE | 2019-07-17 07:00 | NUR ---
PT GUARDIAN NOTIFIED OF ALL STEPS, ALSO NOTIFIED PT FAMILY OF CHANGE OF STATUS PER GUARDIANS WISHES
--- NOTE | 2019-07-17 07:00 | NUR ---
PT OFF UNIT TO E.R WITH CODE TEAM, BELONGINGS NOT WITH PT AT THIS TIME.
--- NOTE | 2019-07-17 09:15 | NUR ---
Notified Josselin at [facility] of Change in patient Condition and that she was sent to the Emergency Room. Spoke with Nurse and Retort Unloader in the Emergency Room and Pt. is actually being Sent to [facility] today.
--- NOTE | 2019-07-17 13:36 | NUR ---
Faxed discharge clinical to [facility]
--- NOTE | 2019-07-18 07:27 | NUR ---
OCCUPATIONAL THERAPY CO-SIGN I approve of the Occupational Therapy notes written above. MALIK HAMILN OTR/Moises
--- NOTE | 2019-07-18 07:39 | NUR ---
PHYSICAL THERAPY CO-SIGN I approve of the Physical Therapy notes written above. Rosario Martinez PT
== END 2019-07-17 07:00 | disposition short-term general hospital (02) | DRG 56 ==
LOC: 3N 18:31
PROVIDERS: ADMIT Psychiatry & Neurology Psychiatry
DX: G30.1 Alzheimer's disease with late onset (principal); E43 Unspecified severe protein-calorie malnutrition; F02.81 Dementia in other diseases classified elsewhere, unspecified severity, with behavioral disturbance; D61.818 Other pancytopenia; F25.9 Schizoaffective disorder, unspecified; I10 Essential (primary) hypertension; R13.10 Dysphagia, unspecified; E53.8 Deficiency of other specified B group vitamins; E55.9 Vitamin D deficiency, unspecified; F32.9 Major depressive disorder, single episode, unspecified; F41.9 Anxiety disorder, unspecified; Z83.3 Family history of diabetes mellitus; Z88.0 Allergy status to penicillin; Z88.8 Allergy status to other drugs, medicaments and biological substances; Z80.9 Family history of malignant neoplasm, unspecified; Z68.27 Body mass index [BMI] 27.0-27.9, adult

== ENCOUNTER 2019-07-17 07:14 | Emergency (ER) | payer OTHER ==
[~2019-07-17] VITALS: Wt 70.3 kg
[2019-07-17 07:41] LABS: ABG BASE EXCESS -9.6 mmol/L (-2.0-2.0); ARTERIAL BLOOD GAS PH 7.122 (7.35-7.45)
[2019-07-17 07:51] LABS: HEMATOCRIT 34.8 % (37.0-47.0); HEMOGLOBIN 10.9 g/dl (12.0-16.0); MEAN CELL VOLUME 88.1 fl (81.0-99.0); MEAN CORPUSCULAR HGB 27.6 pg (27.0-31.0); MEAN CORPUSCULAR HGB CONC 31.3 g/dl (33.0-37.0); MEAN PLATELET VOLUME 11.4 fl (9.6-12.3); NUCLEATED RED BLOOD CELL 0.1 % (0.0-0.0); PLATELET COUNT AUTOMATED 130 10*3/uL (130-400); RED BLOOD COUNT 3.95 10*6/uL (4.10-5.10); RED CELL DISTRI WIDTH 13.6 % (0-14.5); WHITE BLOOD COUNT 16.1 10*3/uL (4.8-10.8)
[2019-07-17 08:01] LABS: INTERNATIONAL NORM RATIO 1.3 (2.0-3.5)
[2019-07-17 08:08] LABS: ALBUMIN 2.6 gm/dl (3.1-4.5); CREATININE 1.17 mg/dL (0.55-1.02); POTASSIUM 3.7 mmol/L (3.5-5.1); TOTAL PROTEIN 5.2 gm/dL (6.4-8.2)
[2019-07-17 08:10] LABS: TROPONIN I 0.409 ng/ml (<0.045)
[2019-07-17 08:18] LABS: ATYPICAL LYMPHS 1 % (0-0); BURR CELLS FEW; OVALOCYTES FEW; PLATELET SUFFICIENCY NORMAL (NORMAL); POLYCHROMASIA SLIGHT; TOTAL CELLS COUNTED 100 #CELLS
[2019-07-17 08:19] LABS: TOXIC GRANULATION SLIGHT
[2019-07-17 09:27] VITALS: BP 87/53
== END 2019-07-17 10:35 | disposition short-term general hospital (02) ==
LOC: ED 07:14
PROVIDERS: Emergency Medicine
DX: I46.9 Cardiac arrest, cause unspecified (principal); R41.82 Altered mental status, unspecified; I47.2 Ventricular tachycardia; J96.02 Acute respiratory failure with hypercapnia; J96.01 Acute respiratory failure with hypoxia; I10 Essential (primary) hypertension; F25.9 Schizoaffective disorder, unspecified; G30.9 Alzheimer's disease, unspecified; F02.80 Dementia in other diseases classified elsewhere, unspecified severity, without behavioral disturbance, psychotic disturbance, mood disturbance, and anxiety; R79.1 Abnormal coagulation profile; Z88.0 Allergy status to penicillin; Z88.8 Allergy status to other drugs, medicaments and biological substances; Z79.899 Other long term (current) drug therapy